=== PATIENT | male | born 1945 | race Caucasian/White ===

== ENCOUNTER 2017-04-23 18:06 | Inpatient (IN) | payer OTHER, MEDICARE ==
[~2017-04-23] VITALS: Ht 182.9 cm; Wt 127.3 kg
--- NOTE | ~2017-04-23 | OR ---
PATIENT'S NAME: CAPO [facility] AGE: 71 Y [address] ROOM: [place] [address] [place] [facility] [place]: 04/23/2017 OR/Procedure Report DISCHARGE DATE: FAMILY PHYSICIAN: REYMUNDO PÉREZ MD ATTENDING PHYSICIAN: SAMY ALONZO SURGEON: Luisito Weiner MD MEDICAL CODING MANAGER: None. DATE OF PROCEDURE: 04/25/2017 IDENTIFICATION: A 71-year-old male. PREOPERATIVE DIAGNOSES: 1. Right 2nd toe gangrene. 2. Gastrocnemius equinus/shortened Achilles tendon. POSTOPERATIVE DIAGNOSES: 1. Right 2nd toe gangrene. 2. Gastrocnemius equinus/shortened Achilles tendon. PROCEDURE: 1. Right gastrocnemius recession procedure. 2. Right 2nd toe amputation at metatarsophalangeal joint. 3. Use of intraoperative fluoroscopy, less than 1 hour. ANESTHESIA: Spinal and peripheral nerve block. FLUIDS: See anesthesia report. ESTIMATED BLOOD LOSS: Minimal. TOURNIQUET: Right proximal thigh 250 mmHg. SPECIMEN: Right 2nd toe. COMPLICATIONS: None. DISPOSITION: Stable in PACU. COUNTS: All counts correct. INDICATIONS: Mr. Vasquez is a 71-year-old gentleman, who underwent the noted procedures above. The risks, benefits, and alternatives pursuing surgical intervention were discussed with the patient in detail. I marked the patient's right lower extremity and confirmed the right surgical site. The patient elected to proceed with surgery. Anesthesia was consulted for their PATIENT'S NAME: CAPO [facility] AGE: 71 Y [address] ROOM: [place] [address] [place] [facility] [place]: 04/23/2017 OR/Procedure Report DISCHARGE DATE: FAMILY PHYSICIAN: REYMUNDO PÉREZ MD ATTENDING PHYSICIAN: SAMY ALONZO perioperative evaluation of the patient. DESCRIPTION OF PROCEDURE: The patient was brought from the holding area to the operating room. Time-out was performed. Ancef antibiotic was administered for perioperative prophylaxis. The right lower extremity was then prepped and draped in a sterile fashion. I turned my attention to the right lower extremity. An Esmarch was used to exsanguinate the limb and the tourniquet was inflated to 250 mmHg. I then turned my attention to medial aspect of the leg. In the beginning, I performed a longitudinal incision with a 15 blade knife through skin and subcutaneous tissue, muscle fascia down the gastrocnemius aponeurosis. I introduced a speculum. I incised the gastrocnemius aponeurosis. I hyper-dorsiflexed the ankle and achieved approximately 1 cm of diastasis of the gastrocnemius aponeurosis and improvement in the patient's dorsiflexion. The wound was then copiously irrigated with a normal sterile saline solution, closed in layers. I then turned my attention to the right 2nd toe. I introduced intraoperative fluoroscopy. I identified the 2nd toe at the metatarsophalangeal joint. Notably, there was purulent drainage coming from the tip of the second toe and appeared to be evidence of wet gangrene. I then began by making a fishmouth incision over the dorsum of the second toe and plantar surface of the second toe. I sharply dissected using a 15 blade knife the second toe at the metatarsophalangeal joint. I confirmed fluoroscopically that I amputated the 2nd toe at the 2nd metatarsophalangeal joint. The toe was sent to the lab for specimen. The wound was then copiously irrigated with normal sterile saline solution. It was closed using a 2-0 nylon suture in interrupted horizontal mattress fashion to approximate the flap. The tourniquet was let down. A sterile dressing was placed in the form of Xeroform, followed by 4x4s and fluffs followed by a sterile Webril and Ivan bandage. The patient was placed in a postop shoe. The patient was transferred from the operating table onto the stretcher and brought to the recovery room in stable condition. There were no intraoperative complications noted. PATIENT'S NAME: LUPE VASQUEZ [facility] AGE: 71 Y [address] ROOM: [address] [address] [place] [facility] [place]: 04/23/2017 OR/Procedure Report DISCHARGE DATE: FAMILY PHYSICIAN: REYMUNDO PÉREZ MD ATTENDING PHYSICIAN: SAMY ALONZO IMPRESSION: The patient is status post the noted procedures above. PLAN: The patient will be heel weightbearing on the right lower extremity. Postoperative antibiotics will be routine. The patient is being given a heparin for DVT prophylaxis. The right 2nd toe will be sent for specimen. The patient will start physical therapy and occupational therapy on postoperative day 1. The hospitalist team to manage the patient's concomitant medical comorbidities. I will continue to follow the patient closely in the postoperative period. MD SHEILA CORCORAN/mitra /[id number] d: 04/25/172000 t: 04/26/17813, OPERATIVE SUMMARY
--- NOTE | ~2017-04-23 | CON ---
PATIENT'S NAME: LUPE VASQUEZ [facility] AGE: 71 Y [address] ROOM: [place] [address] [place] [facility] [place]: 04/23/2017 Consultation DISCHARGE DATE: FAMILY PHYSICIAN: REYMUNDO PÉREZ MD ATTENDING PHYSICIAN: SMAY ALONZO DATE OF CONSULTATION: 04/25/2017 CHIEF COMPLAINT: Right foot pain. HISTORY OF PRESENT ILLNESS: Mr. Vasquez is a pleasant 71-year-old gentleman who has been sent to [facility] for admission from the [place]. The patient has had a storied history of problematic right second toe. He has long-standing diabetes with advanced peripheral neuropathy. Approximately 2 months ago, the patient developed an infection in his second toe. The toenail was removed, and there was purulent drainage. The patient was treated with antibiotics, but does not recall what kind. There was a period where there appeared to be interval improvement in the second toe. Though, when he woke up on the morning of the , he realized that his second toe had become red, swollen, and hot to the touch with purulent drainage noted. Seeing that the patient is a diabetic with advanced peripheral neuropathy, he is unable to feel this coming on. There was concern for osteomyelitis. He has been sent over to [facility] for definitive care. I was consulted to see and evaluate him from an Orthopedic standpoint. Currently, the patient denies any constitutional symptoms such as fever, chills, or night sweats. He also denies any dizziness, chest pain, shortness of breath, blurred vision, nausea, vomiting, or diarrhea. He denies any previous trauma or surgery to the right foot. REVIEW OF SYSTEMS: Otherwise, as mentioned above. All other systems were reviewed and are negative, except as mentioned in the history of present illness. PAST MEDICAL HISTORY: Includes coronary artery disease, type 2 diabetes, hypertension, peripheral neuropathy, ischemic stroke, hyperlipidemia, obstructive sleep apnea, depression, and GERD. ALLERGIES: INCLUDE LISINOPRIL AND IV CONTRAST. MEDICATIONS: Currently include; 1. Asmanex. PATIENT'S NAME: LUPE VASQUEZ [facility] AGE: 71 Y [address] ROOM: [place] [address] [place] [facility] [place]: 04/23/2017 Consultation DISCHARGE DATE: FAMILY PHYSICIAN: REYMUNDO PÉREZ MD ATTENDING PHYSICIAN: SAMY ALONZO 2. Coreg. 3. Cozaar. 4. Florastor. 5. Glucophage. 6. Heparin. 7. Lipitor. 8. Neurontin. 9. Norvasc. 10. NovoLog. 11. Plaquenil. 12. Protonix. 13. Proventil. SOCIAL HISTORY: The patient no longer smokes. He had a previous jrn-ghds-woc-day for many- year cigarette consumption, but quit in the year 1999. He denies any alcohol or illicit drug use. FAMILY HISTORY: Includes cancer in his father, and his father's side of the family. His mother had cardiac issues. PAST SURGICAL HISTORY: Includes CABG, stent placement, lumbar spine surgery, cervical spine surgery, and right shoulder surgery in the past. PHYSICAL EXAMINATION: VITAL SIGNS: Temperature is 97.6, respirations 16, heart rate of 56, and blood pressure of 173/78. HEENT: Normocephalic and atraumatic. Extraocular movements are intact. PERRLA. Moist mucous membranes. Oropharyngeal airway is clear. NECK: Supple. Trachea is in the midline. CARDIOVASCULAR: Regular rate and rhythm. RESPIRATORY: Normal symmetric respirations observed bilaterally. ABDOMEN: Soft, nontender, and nondistended. MUSCULOSKELETAL: Extremities, right lower extremity, focal examination of the patient's right lower extremity revealed that the thigh, calf, and foot are soft. There is +1 edema in the leg. There are trace palpable dorsalis pedal and posterior tibial pulses. Delayed capillary refill noted in the toes. Wet gangrene noted at the tip of the second toe. Surrounding cellulitis noted. Purulent drainage at the tip of the second toe. Dorsiflexion to neutral with the knee extended, which improves approximately 15 degrees when the knee is flexed to 90 degrees. This was a positive Silfverskiold test. Global decreased sensation secondary to peripheral neuropathy. PATIENT'S NAME: LUPE VASQUEZ [facility] AGE: 71 Y [address] ROOM: [address] [address] [place] [facility] [place] DATE: 04/23/2017 Consultation DISCHARGE DATE: FAMILY PHYSICIAN: REYMUNDO PÉREZ MD ATTENDING PHYSICIAN: SAMY ALONZO LABORATORY DATA: Hemoglobin 11.2, hematocrit 33.5, white blood cell count of 3.7, and platelet count of 157. Chem-7; sodium of 141, potassium of 4.3, chloride 106, CO2 28, BUN 14, creatinine 0.9, glucose 191. Blood cultures currently negative. CRP is 1.14. Procalcitonin is 0.29, which is elevated. Glycosylated hemoglobin 9.5. IMAGING: Plain radiographs of the right foot reveal no evidence of fracture or dislocation. Advanced degenerative changes noted at the first metatarsophalangeal joint. No concern for osteomyelitis by this plain film. An MRI of the right foot appears to show evidence of osteomyelitis at the distal phalanx of the second toe. There was surrounding soft tissue swelling in the foot on the whole. IMPRESSION: 1. Right second toe gangrene with confirmed presence of osteomyelitis by MRI with surrounding cellulitis of the forefoot. 2. Gastrocnemius equinus/shortened Achilles tendon. 3. Diabetes mellitus. 4. Advanced peripheral neuropathy. PLAN: I had a long discussion with the patient today at the bedside regarding his right foot. I am recommending a right second toe amputation at the metatarsophalangeal joint and the gastrocnemius recession procedure. I discussed the risks, benefits, and alternatives of pursuing a surgical intervention with the patient in detail. I discussed the risks of anesthesia, infection, bleeding, and/or injury to neurovascular structures. The patient is at higher risk for complication with his current medical comorbidities. My concern is that if this infection were to be left untreated and/or neglected, hematogenous spread could be lethal. They expressed understanding of this. The issue of the right foot has been persistent for many months now. I believe we are beyond conservative care. The patient expressed understanding of this. Informed consent was obtained. We will proceed with surgery this afternoon. I have answered all of the patient's questions to his satisfaction at the bedside. MATMA SAEED MD RCAmbar/dorisl PATIENT'S NAME: LUPE VASQUEZ [facility] AGE: 71 Y [address] ROOM: [place] [address] [place]: [facility] [place] DATE: 04/23/2017 Consultation DISCHARGE DATE: FAMILY PHYSICIAN: REYMUNDO PÉREZ MD ATTENDING PHYSICIAN: SAMY ALONZO /[id number] d: 04/25/17 1543 t: 04/26/17 0812, CONSULTATION REPORT
--- NOTE | ~2017-04-23 | CON ---
PATIENT'S NAME: LUPE SCANLON [facility] AGE: 71 Y [address] ROOM: [address] [address] LOCATION: [facility] [place] ADMIT DATE: 04/23/2017 Consultation DISCHARGE DATE: FAMILY PHYSICIAN: REYMUNDO PÉREZ MD ATTENDING PHYSICIAN: SALVADOR ALONZO DATE OF CONSULTATION: 04/26/2017 REFERRING PHYSICIAN: Salvador Alonzo MD REASON FOR VISIT: Right second toe wound. HISTORY OF PRESENT ILLNESS: This is a 71-year-old male patient who was admitted to [facility] with a right toe wound. He has a significant history of type 2 diabetes mellitus, coronary artery disease, hypertension, obstructive sleep apnea, and depression. He admits to peripheral neuropathy. He notes 2 months ago having an infection to his right second toe. He notes his toenail was removed, and he was placed on p.o. antibiotics. A few days prior to admission, he noticed his right second toe becoming red and swollen with purulent exudate. The patient's MRI was consistent with osteomyelitis, and he underwent a right second toe amputation at the metatarsophalangeal joint by Dr. Weiner yesterday. Surgical dressing intact to site. The patient denies pain to right foot. He currently reports he feels well. He reports a fair oral intake. He denies chest pain. PAST MEDICAL HISTORY: Type 2 diabetes mellitus with peripheral neuropathy, coronary artery disease, SC, essential hypertension, ischemic stroke, hyperlipidemia, obstructive sleep apnea, GERD, and depression. PAST SURGICAL HISTORY: CABG, cardiac stent, lower back surgery, cervical disk herniation surgery, and right shoulder surgery. FAMILY HISTORY: He reports his father from cancer. SOCIAL HISTORY: The patient lives with his in [place]. He quit smoking in 1999. He denies alcohol use. ALLERGIES: IVAN INHIBITORS AND LISINOPRIL. PATIENT'S NAME: SAMI SCANLONY Enma [facility] AGE: 71 Y [address] ROOM: [address] [address] LOCATION: [facility] [place] ADMIT DATE: 04/23/2017 Consultation DISCHARGE DATE: FAMILY PHYSICIAN: REYMUNDO PÉREZ MD ATTENDING PHYSICIAN: SALVADOR ALONZO CURRENT MEDICATIONS: Please refer to the medication administration record. REVIEW OF SYSTEMS: Pertinent positives addressed in the HPI and all the rest are negative. PHYSICAL EXAMINATION: VITAL SIGNS: Temperature 98.0, pulse 61, respirations 16, blood pressure 140/67, and pulse oximetry 93% on room air. Height 6 feet 0 inches and weight 127.3 kg. GENERAL: The patient is alert and oriented x3. In no acute distress. HEENT: Full garber noted. Head is normocephalic and atraumatic. NECK: Supple. NEUROLOGICAL: Grossly nonfocal. ABDOMEN: Flat. EXTREMITIES: +1 pedal pulses at best. Capillary refill intact. No left lower extremity edema. Scattered brown staining noted to lower legs. SKIN: Bulky Ivan wrap dressing intact to right lower extremity. Left heel intact. No ulcers to left foot. The patient declines buttocks examination and reports he has no other skin issues. LABORATORY DATA: White blood cell count 5.3, hemoglobin 11.3, hematocrit 33.8, and platelets 141. Sodium 141, potassium 4.3, chloride 106, bicarbonate 28, BUN 14, creatinine 0.9, and glucose 191. ASSESSMENT AND PLAN: Again, this is a 71-year-old male patient who was admitted to [facility] with a right second toe ulcer. He is status post right second toe amputation by Dr. Weiner. Right second toe amputation secondary to osteomyelitis and diabetes mellitus. Left bulky postsurgical dressing intact. We will defer to Dr. Weiner for further management. We will be happy to assist with dressing changes or see the patient in the [facility] if needed. I would like to thank Dr. Alonzo for this consult. BIMAL WILD APRN FOR MD XOCHILT PEREZ/mitra PATIENT'S NAME: LUPE SCANLON [facility] AGE: 71 Y [address] ROOM: [address] [address] LOCATION: [facility] [place] ADMIT DATE: 04/23/2017 Consultation DISCHARGE DATE: FAMILY PHYSICIAN: REYMUNDO PÉREZ MD ATTENDING PHYSICIAN: SALVADOR ALONZO /[id number] d: 04/26/17 1238 t: 04/30/17 1014, CONSULTATION REPORT
--- NOTE | ~2017-04-23 | HP ---
PATIENT'S NAME: LUPE SCANLON [facility] AGE: 71 Y [address] ROOM: [id number] [place], [place] [address] [place] [facility] [place]: 04/23/2017 History & Physical DISCHARGE DATE: FAMILY PHYSICIAN: REYMUNDO PÉREZ MD ATTENDING PHYSICIAN: SAMY ALONZO DATE OF SERVICE: CHIEF COMPLAINT: Erythema, edema, and purulent drainage coming out from the right second toe. HISTORY OF PRESENT ILLNESS: This is a 71-year-old male who usually gets all of his care in the [place]. The story is that the patient for many years has had black toenail in the right second toe. He also has a longstanding diabetes type 2 with very advanced peripheral neuropathy with decreased sensation below both knees, worse in both feet. About 2 months ago, the patient has been having infection in his right second toe. At that time, the toenail was removed and pus came out. The patient was treated with antibiotics, but the patient could not remember which ones. In March, the patient was also put on Keflex for roughly 3 weeks. After the completion of the antibiotics, the patient states that his right second toe was looking much better. However, this morning, when he woke up, he realized that his right second toe has become red and swollen and hot to touch, but he could not feel any pain because of the peripheral neuropathy. There was some pus coming out again from the second toe in the area where there was supposed to have toe nail. His toenail was already removed in the past. The patient denies any fever or chills and denies any other symptoms. In fact, the patient does not have any symptoms. The patient went to [place] and the patient was referred here for concern about osteomyelitis. Today, at [place], the patient had x-ray of the right foot to evaluate for osteomyelitis and the official report was read as the tuft of the distal phalanx, second toe has become eroded since the comparison examination, but the margins are smooth and there is no periosteal reaction. There is mild soft tissue swelling in this region. Otherwise, no change from the comparison. Here in our emergency room, the patient again had a right foot x-ray performed, official reading is pending. In the emergency room before I was notified, the patient already got 1 dose of IV clindamycin. Initially, the patient was scheduled for MRI of the right foot tonight; however, due to the staff shortage, MRI will be postponed until the morning. I confirmed this with technical marketing consultant already and the patient will be scheduled for MRI in the morning. PATIENT'S NAME: [facility] AGE: 71 Y [address] ROOM: [place] [address] [place] [facility] [place]: 04/23/2017 History & Physical DISCHARGE DATE: FAMILY PHYSICIAN: REYMUNDO PÉREZ MD ATTENDING PHYSICIAN: SAMY ALONZO REVIEW OF SYSTEMS: As mentioned in the history of present illness. All other systems were reviewed and were negative except as mentioned in the history of present illness. PAST MEDICAL HISTORY: 1. Coronary artery disease status post PCI and stent in the past few years ago and also had CABG many years ago. 2. Diabetes type 2. 3. Hypertension. 4. 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 5. Hyperlipidemia. 6. Obstructive sleep apnea, not on CPAP at night due to noncompliance. 7. Depression. 8. Gastroesophageal reflux disease. 9. Most recent transthoracic echo was done in November 2014. At that time, the EF was 50% to 55%. ALLERGIES: LISINOPRIL, WHICH CAUSES A COUGH. IV CONTRAST. THE PATIENT SAYS THAT IT GAVE HIM SHORTNESS OF BREATH. HOME MEDICATIONS: Currently is being reconciled and will be addressed once the list is ready. SOCIAL HISTORY: The patient was a former cigarette smoker about 1 pack per day for few years and he quit in year 1999. He denies any alcohol or any illegal drug use. FAMILY HISTORY: Father had a cancer and from cancer, but he could not remember which cancer. Mother had a heart issue. Details are not clear and also had Alzheimer and at old age from dementia according to the patient. PAST SURGICAL HISTORY: 1. Status post CABG in the past many years ago. 2. Status post drug-eluting stent placed in the heart few years ago. 3. Lower back surgery in the past. 4. Status post cervical disc herniation surgery in 2007. 5. Status post right shoulder surgery in the past. PHYSICAL EXAMINATION: VITAL SIGNS: At the time of my dictation, temperature was 98, blood pressure PATIENT'S NAME: [facility] AGE: 71 Y [address] ROOM: [id number] [place], [place] [address] [place] [facility] [place]: 04/23/2017 History & Physical DISCHARGE DATE: FAMILY PHYSICIAN: REYMUNDO PÉREZ MD ATTENDING PHYSICIAN: CLINTONPABLO was 170/90, heart rate was 82, respirations were 14, saturation was 99% on room air. GENERAL APPEARANCE: Alert and oriented x3, in no acute distress. HEENT: Pupils are equally round and reactive to light. Extraocular muscles intact. Anicteric sclerae. Nasal turbinates are normal bilaterally. Moist oral mucosa. NECK: No JVD. CARDIOVASCULAR: Regular rate and rhythm. No obvious murmurs, rubs, or gallops. Normal S1, S2. RESPIRATORY: Clear to auscultation. No rales and no rhonchi. No crackles and no wheezing. ABDOMEN: Obese, soft, nontender, bowel sounds are present, could not appreciate any mass. No ascites. Soft and nondistended. No abdominal rigidity. EXTREMITIES: No edema in upper or lower extremity. In the right second toe, there is erythema as well as small area of necrotic skin in the area where it is supposed to have a toenail, but his toenail was removed in the past. No active pus upon excretion of the second toe. No pain. Very decreased sensation to touch. Slightly warm to touch. No obvious edema. Dorsalis pedis pulse and the posterior tibialis pulse, palpable, but weak in both feet. Doppler ultrasound was able to find the pulse in both feet, in both dorsalis pedis and also on posterior tibialis. Both feet are not cold to touch. NEUROLOGICAL: Grossly unremarkable except for a right upper visual field loss in the right eye from a previous stroke and also decreased sensation in both lower extremity below both knees, especially in both feet. Otherwise, grossly unremarkable. SKIN: Refer to the extremity section for details. MUSCULOSKELETAL: No muscle pain and no joint pain. Range of motion intact. LABORATORY DATA: Lactic acid 1.9, white blood cells 6.7, hemoglobin 11.7, hematocrit 35.6, MCV 91, platelets 160. Glucose 108, BUN 17, creatinine 1.2. Sodium 139, potassium 3.9, chloride 102, CO2 28, calcium 8.8, total protein 6.9, albumin 3.3, AST 23, ALT 33, alkaline phosphatase 93, total bilirubin 0.5, anion gap 12.9, globulin 3.6, GFR 60, CRP 1.73, procalcitonin less than 0.05. IMAGING STUDY: 1. Right foot x-ray from the outside facility performed on April 23, 2017, already mentioned in the history of present illness. 2. X-ray performed in the emergency room upon arrival, on April 23, 2017, of the right foot, the official reading is pending. EMERGENCY ROOM COURSE: In the emergency room, the patient got 1 liter of normal saline and also one dose of IV clindamycin 900 mg. This was given in the ED before I was notified PATIENT'S NAME: LUPE SCANLON [facility] AGE: 71 Y [address] ROOM: [id number] [place], [place] [address] [place] [facility] [place]: 04/23/2017 History & Physical DISCHARGE DATE: FAMILY PHYSICIAN: REYMUNDO PÉREZ MD ATTENDING PHYSICIAN: SAMY ALONZO for admission. ASSESSMENT AND PLAN: 1. Regarding his right second toe cellulitis and questionable osteomyelitis: I will get MRI of the right foot in the morning to look for osteomyelitis. The patient currently is hemodynamically stable and has no complaints. Blood work did not show any leukocytosis, but does show elevation of CRP. I am going to hold on the antibiotics for now until tomorrow's MRI to see if he has osteomyelitis or not. If he does have, then we will consult orthopedic surgeon for debridement and also for bone biopsy prior to starting any antibiotics. Further plan will depend on clinical course. Blood culture 2 sets already obtained. Please also follow up with the official report of the right foot x-ray in the morning. The patient will be monitored very closely in the medical- surgical unit for any change in the right second toe. I will also consult Wound Care for diabetic foot care and also for the right second toe wound care. We will repeat blood work in the morning including CRP and ESR. Continue IV fluids for maintenance rates right now. 2. Regarding his peripheral vascular disease: The patient does have a pulse that is palpable, but weak in both lower extremity in both dorsalis pedis and also on both posterior tibialis pulses. Doppler was already used and was able to find the pulse in both feet in dorsalis pedis and also on the posterior tibialis pulses in bilateral feet. In the morning, please check again the pulse and can consult Vascular Surgery if necessary for peripheral vascular disease and if the necrosis of the second toe worsens for risk of limb ischemia. Both feet are currently not cold to touch. 3. Regarding his hypertension: We will continue home medications with holding parameters and also we will add IV labetalol p.r.n. and also IV hydralazine p.r.n. for hypertension control if needed. 4. Regarding his diabetes type 2: Continue diabetic diet. We will check hemoglobin A1c. I will put him on the sliding scale aspart a.c. and h.s. aggressive dose. Can titrate as needed. 5. Regarding his obstructive sleep apnea: Continue oxygen nasal cannula at night if necessary for the saturation to keep it above 94%. 6. Regarding his gastroesophageal reflux disease: Continue the home medication, which includes the proton pump inhibitor. 7. Regarding his coronary artery disease, status post stents in the past and also CABG in the past: The patient denies any chest pain. I will continue home medication. No active issue at the moment. 8. Regarding his deep vein thrombosis prophylaxis: The patient will be getting subcu heparin. 9. Regarding his code status: He is a DO NOT RESUSCITATE, but not DO NOT INTUBATE. Total time spent in care on the day of admission 50 minutes including 30 minutes was spent on counseling, including going over the plan of care in PATIENT'S NAME: LUPE SCANLON [facility] AGE: 71 Y [address] ROOM: [place] [address] [place] [facility] [place]: 04/23/2017 History & Physical DISCHARGE DATE: FAMILY PHYSICIAN: REYMUNDO PÉREZ MD ATTENDING PHYSICIAN: SAMY ALONZO detail with the patient, the patient's , and also addressing all the questions and concerns to their satisfaction. The remaining of the time was spent on interview and chart review and also on physical examination. Further plan will depend on clinical course. SAMY ALONZO MD CC/modl /[id number] D: [id number] T: [id number] HISTORY & PHYSICAL
--- NOTE | ~2017-04-23 | DS ---
PATIENT'S NAME: LUPE SCANLON [facility] AGE: 71 Y [address] ROOM: [address] [place], [place] [address] [place] [facility] [place]MIT DATE: 04/23/2017 Discharge Summary DISCHARGE DATE: 04/27/2017 FAMILY PHYSICIAN: Mario Alberto MD ATTENDING PHYSICIAN: Salvador Schumacher CONSULT PHYSICIAN: Dr. Luisito Weiner. DISCHARGE DIAGNOSES: 1. Right second toe gangrene. 2. Peripheral vascular disease. 3. Diabetes mellitus type 2 with hyperglycemia. 4. Essential hypertension. 5. Obstructive sleep apnea. 6. Gastroesophageal reflux disease. 7. Diabetic peripheral neuropathy. PRINCIPLE PROCEDURES: Right second toe amputation and gastrocnemius recession on 04/25/[address] Luisito Weiner. HOSPITAL COURSE: Please refer to admitting history and physical as dictated by Dr. Schumacher. Briefly, the patient was admitted where he was found to have right second toe cellulitis. MRI of the right foot was performed, which did show findings consistent with osteomyelitis of the distal phalanx of the second toe. Dr. Luisito Weiner was consulted. His blood sugars were monitored, and he was given Levemir as well as sliding scale insulin. Dr. Weiner felt as though the patient should proceed to surgery and undergo a right second toe amputation and gastrocnemius recession. This was performed on 04/25/2017. Postoperatively, he was given Ancef. He was made heel weightbearing of the right lower extremity. Wound Care did see the patient and followed throughout his stay. The patient tolerated the procedure well. He was up and ambulatory. He was tolerating a regular diet. He did have some hyperglycemia. It was recommended that he resume his home insulin regimen on discharge. CPAP was used for his chronic hypercapnic respiratory failure. It was recommended that he have ABIs done as an outpatient as per his primary care provider. Vital signs were stable. Laboratory data was stable. He was up and ambulatory. On 04/27/2017, surgical dressing was changed by Orthopedics. It was felt as though he could be discharged to home. Follow up with Orthopedics in 1 week. He should start aspirin 325 mg p.o. twice daily until full weightbearing for DVT prophylaxis. Once he is full weightbearing, he may resume his aspirin 81 mg. It is also recommended that he hold his methotrexate for 1 week postop. On 04/27/2017, it was felt as though the patient was stable to be discharged to home. He should follow up with his primary care provider in 3 to 5 days. PATIENT'S NAME: LUPE SCANLON [facility] AGE: 71 Y [address] ROOM: [address] [place], [place] [address] LOCATION: [facility] [place] ADMIT DATE: 04/23/2017 Discharge Summary DISCHARGE DATE: 04/27/2017 FAMILY PHYSICIAN: Mario Alberto MD ATTENDING PHYSICIAN: Salvador Schumacher LABORATORY DATA: Sodium remained stable 139 to 141, potassium 3.9 to 4.3, calcium 8.2, BUN 10 to 15, creatinine 0.9 to 1.1. GFR remained greater than 60. AST 23, ALT 33, alkaline phosphatase 93. Hemoglobin 10.3 to 11.7, hematocrit 30.9 to 35.2, platelets 143 to 157. UA: Nitrites negative, leukocytes negative, glucose 1000, blood negative. Blood cultures, no growth to date. Final blood cultures are pending. RADIOLOGY REPORTS: MRI of the right foot showed findings consistent with osteomyelitis of the distal phalanx of the second toe. DISCHARGE INSTRUCTIONS: The patient will be discharged to home. Diet, diabetic. Activity, heel weightbearing. Followup appointment with Dr. Weiner in 1 week. Leave dressing in place until seen in office. Follow up with Dr. Alberto at the [facility] in 3 to 5 days. CPAP when asleep. Recommend bilateral ABIs with primary care provider. DISCHARGE MEDICATIONS: 1. Vitamin D3 2000 units p.o. daily. 2. Methotrexate 25 mg subcu every 7 days, hold for one week, then may resume. 3. Lidocaine jelly one topically 4 times daily. 4. Lipitor 80 mg p.o. q.h.s. 5. Coreg 12.5 mg p.o. twice daily. 6. Neurontin 600 mg p.o. t.i.d. 7. Aspirin 325 mg p.o. b.i.d. until full weightbearing. Once full weight bearing, he may resume his aspirin 81 mg p.o. daily. 8. Plaquenil 200 mg p.o. twice daily. 9. Insulin U-500 of 100 units subcu twice daily. 10. Cozaar 100 mg p.o. daily. 11. Protonix 40 mg p.o. daily. 12. ProAir 1 puff 4 times daily. 13. Asmanex 2 puffs inhalation every bedtime. 14. Eylea 2 mg IO every 28 days. 15. Vitamin B12 of 1000 mcg p.o. daily. 16. Sennosides docusate sodium tablets 1 tablet p.o. twice daily p.r.n. constipation. 17. Folic acid 1 mg p.o. daily. 18. Lasix 80 mg p.o. daily. 19. Glucophage XR 1000 mg p.o. daily. 20. Potassium 20 mEq p.o. daily. 21. Tylenol 325 mg 1 or 2 tablets p.o. every 6 hours p.r.n. pain. Thank you for allowing us to participate in the care of this patient as he has been hospitalized at [facility]. [facility]GE: 71 Y [address] ROOM: [place] [address] [place]: [facility] [place] ADMIT DATE: 04/23/2017 Discharge Summary DISCHARGE DATE: 04/27/2017 FAMILY PHYSICIAN: Mario Alberto MD ATTENDING PHYSICIAN: Salvador Schumacher TOMMY STALLINGS APRN FOR CIARAN MAURER MD KRR/modl /[id number] CC: MD Mario Mcclendon MD d: 04/28/17 0422 t: 05/10/17 2359, DISCHARGE SUMMARY
--- NOTE | ~2017-04-23 | ER ---
PATIENT'S NAME: LUPE SCANLON [facility] AGE: 71 Y [address] ROOM: [place] [address] LOC[place]: [facility] [place] ADMIT DATE: 04/23/2017 ER/Outpatient Report DISCHARGE DATE: FAMILY PHYSICIAN: REYMUNDO PÉREZ MD ATTENDING PHYSICIAN: SAYM ALONZO Admission date and time documented on the medical record. I saw the patient at 1820 hours. CHIEF COMPLAINT: Infected right second toe. HISTORY OF PRESENT ILLNESS: The patient is a 71-year-old male who has been having problems with infection in his right second toe over the past 2 months. Over the past 10 days, he has been on oral clindamycin without improvement. He was seen in the [place] and told to come to the emergency department here at [facility] for admission for IV antibiotics. [place] expected that he could have osteomyelitis of this right second toe. The patient does have insulin-dependent diabetes mellitus type 2, with peripheral vascular disease, peripheral neuropathy. Denies any pain in the toe, has been draining from the tip of the toe. The toe is inflamed, swollen with some red streaking up the dorsum of his foot. No chest pain, shortness of breath. No abdominal pain, nausea, vomiting, or diarrhea. No urinary symptoms. No headache, eyes, ears, nose, throat, neck, or spine pain. No lightheadedness, dizziness, syncope, or near syncope. No fall or trauma. No recent colds, coughs, flus. No other extremity problems. No other skin manifestations. Does have a history of insulin-dependent diabetes mellitus with peripheral neuropathy, retinopathy, nephropathy. He does have a history of some dementia. Does have some history of depression, anxiety. He has had a previous cerebrovascular accident. HOME MEDICATIONS: See attached medication list. ALLERGIES: LISINOPRIL. SOCIAL HISTORY: Nonsmoker, nondrinker. SIGNIFICANT PAST MEDICAL HISTORY: Atherosclerotic ischemic heart disease with coronary artery disease, COPD, hypertension, insulin-dependent diabetes mellitus type 2, remote tobacco, alcohol abuse, unstable angina, cerebrovascular accident, obstructive sleep apnea, dyslipidemia, ischemic cardiomyopathy, dementia, depression, anxiety, PATIENT'S NAME: LUPE SCANLON [facility] AGE: 71 Y [address] ROOM: [place] [address] LOCATION: [facility] [place] ADMIT DATE: 04/23/2017 ER/Outpatient Report DISCHARGE DATE: FAMILY PHYSICIAN: REYMUNDO PÉREZ MD ATTENDING PHYSICIAN: SAMY ALONZO gastroesophageal reflux, peripheral diabetic neuropathy, diabetic retinopathy, diabetic nephropathy, rheumatoid arthritis, degenerative joint disease, degenerative osteoarthritis, and exogenous obesity. OPERATIONS: Right shoulder surgery, cervical diskectomy, coronary artery bypass graft, cardiac catheterization with PTCA and stenting. REVIEW OF SYSTEMS: All systems reviewed by me are negative with the exception of those discussed in the history of the present illness. PHYSICAL EXAMINATION: VITAL SIGNS: Temperature 97, tympanic; pulse 63 and regular; respirations 16; blood pressure 158/69; O2 saturation on room air was 96%. HEAD: Normocephalic. EYES: Extraocular muscles are intact. PERRL. EARS, NOSE, THROAT: Clear. Mucous membranes are moist. NECK: Negative. LUNGS: Clear. HEART: Regular. ABDOMEN: Soft, nontender. Good bowel tones. Mildly obese. No organomegaly or abnormal masses palpable. EXTREMITIES: Moves all 4 extremities. No peripheral edema, cyanosis, or deformity. The patient does have an inflamed, swollen right great toe. It kind of has some ulcer areas with drainage on the tip of the toe. There is some red streaking on the dorsum of his foot. NEUROVASCULAR: Intact. The patient does have peripheral vascular disease. SKIN: Clear other than the right great toe that is erythematous, swollen. X-RAYS: Plain x-ray of the right foot showed degenerative changes, but no acute osteomyelitic changes or fracture. We will review x-ray with the radiologist. LABORATORY DATA: Procalcitonin was less than 0.05, lactate was 1.9. CMS was normal except for a slightly elevated glucose of 108, CRP was 1.73. White count was 6700, 67 segs, 21 lymphs, 9 monos, 3 eos. Hemoglobin is 11.7, hematocrit is 35.6, and platelet count is 160,000. EMERGENCY DEPARTMENT COURSE: I did start the patient on IV normal saline fluids. Did give him clindamycin 900 mg IV here in the emergency department. IMPRESSION: PATIENT'S NAME: LUPE SCANLON [facility] AGE: 71 Y [address] ROOM: [address] [address] LOCATION: [facility] [place] ADMIT DATE: 04/23/2017 ER/Outpatient Report DISCHARGE DATE: FAMILY PHYSICIAN: REYMUNDO PÉREZ MD ATTENDING PHYSICIAN: SAMY ALONZO 1. Cellulitis, infected right second toe. Toe is edematous, inflamed with some drainage from the tip of the toe. Need to rule out osteomyelitis. 2. Insulin-dependent diabetes mellitus type 2 with peripheral diabetic neuropathy, diabetic retinopathy, and diabetic nephropathy. 3. Hypertension. 4. Atherosclerotic ischemic heart disease with coronary artery disease with a history of ischemic cardiomyopathy. 5. Remote tobacco and alcohol abuse. 6. History of cerebrovascular accident. 7. Obstructive sleep apnea. 8. Dyslipidemia. 9. Depression and anxiety with some dementia. 10. Gastroesophageal reflux. 11. Degenerative joint disease with degenerative osteoarthritis. 12. Exogenous obesity. PLAN: Discussed the patient with Dr. Alonzo, hospitalist, who will admit the patient to [facility] for further evaluation and treatment. The patient will need an MRI scan of his right second toe in the morning. May need to have Orthopedic consult, may need to have a bone biopsy. He will need IV antibiotics and possible debridement. Discussion ensued with the patient concerning my findings and recommendations, he understands. MD SEBASTIEN MORSE/modl /[id number] d: 04/24/17 0126 t: 04/24/17 1813, OUTPATIENT REPORT
[2017-04-23 18:59] LABS: BASOPHIL % 0.3 %; EOSINOPHIL # 0.2 K/uL (0.0-0.5); EOSINOPHIL % 2.5 %; HEMATOCRIT 35.6 % (37.0-53.0); HEMOGLOBIN 11.7 g/dL (11.0-16.0); IMMATURE GRANULOCYTE % 0.3 %; LYMPHOCYTE # 1.4 K/uL (0.8-4.0); LYMPHOCYTE % 20.8 %; MCH 29.9 pg (27.0-34.0); MCHC 32.9 gm/dL (32.0-36.5); MONOCYTE # 0.6 K/uL (0.0-1.0); MONOCYTE % 8.9 %; MPV 10.1 fl (9.4-12.4); NEUTROPHIL # (ANC) 4.5 K/uL (1.4-9.0); NEUTROPHIL % 67.2 %; NRBC % 0 /100WBC (0-0.00); PLATELET COUNT 160 K/uL (150-450); RBC 3.91 M/uL (3.50-5.50); RDW-CV 13.3 % (11.9-14.6); WBC 6.7 K/uL (4.0-11.0)
[2017-04-23 19:19] LABS: ALBUMIN 3.3 gm/dL (3.5-5.0); ANION GAP 12.9 (10.0-19.0); CALCIUM 8.8 mg/dL (8.5-10.5); CREATININE 1.2 mg/dL (0.6-1.3); POTASSIUM 3.9 mMol/L (3.7-5.1); TOTAL BILIRUBIN 0.5 mg/dL (0.0-1.5); TOTAL PROTEIN 6.9 g/dL (6.0-8.4)
[2017-04-23] MEDS ORDERED: ACCU-CHEK AVIV1 EAC1 (22:31)
[2017-04-23] MEDS ORDERED: EYLEA2 MG/0.05 IO (22:40)
[2017-04-23] MEDS ORDERED: PROAIR RESPICL90 MCG INH (22:41)
[2017-04-23] MEDS ORDERED: LIPITOR80 MG PO (22:42)
[2017-04-23] MEDS ORDERED: ASPIRIN LO-DOSE81 MG PO (22:42)
[2017-04-23] MEDS ORDERED: COREG25 MG PO (22:45)
[2017-04-23] MEDS ORDERED: VITAMIN D-32000 UNI1 PO (22:45)
[2017-04-23] MEDS ORDERED: VITAMIN B-12500 MCG PO (22:45)
[2017-04-23] MEDS ORDERED: FOLIC ACID1 MG PO (22:53)
[2017-04-23] MEDS ORDERED: SENNOSIDES-DOC1 EACH PO (22:53)
[2017-04-23] MEDS ORDERED: NEURONTIN600 MG PO (22:54)
[2017-04-23] MEDS ORDERED: PLAQUENIL200 MG PO (22:54)
[2017-04-23] MEDS ORDERED: LASIX80 MG PO (22:54)
[2017-04-23] MEDS ORDERED: HUMULIN R500 UNIT/1 SUB-Q (22:56)
[2017-04-23] MEDS ORDERED: COZAAR100 MG PO (22:57)
[2017-04-23] MEDS ORDERED: XYLOCAINE 2%20 MG/ML TOP (22:57)
[2017-04-23] MEDS ORDERED: GLUCOPHAGE XR500 M1 PO (22:58)
[2017-04-23] MEDS ORDERED: METHOTREXA25 MG/1 M3 SUB-Q (23:00)
[2017-04-23] MEDS ORDERED: PROTONIX40 MG PO (23:03)
[2017-04-23] MEDS ORDERED: ASMANEX TWIST220 MC1 INH (23:03)
[2017-04-23] MEDS ORDERED: K-TAB ER20 MEQ PO (23:04)
--- NOTE | 2017-04-24 03:47 | NUR ---
PT ARRIVED TO UNIT AT 2119 VIA WHEELCHAIR WITH SPOUSE AND GRANDSON AT SIDE, FROM ED. PT AAOX4 WITH PLEASANT, PLAYFUL DEMEANOR. [facility]FE[facility]. PIV STARTED IN ED WITH NS INFUSING AT 125ML/HR. INITIAL VS REVEALED HTN, BUT OTHER VS STABLE ON RA. PT DENIED PAIN/SOB. HAS A RARE COUGH THAT PT STATES IS FROM COPD AND "HAS HAD IT FOR YEARS." PT REPORTS NUMBNESS/TINGLING TO BLE. DOPPLER USED TO ASSESS PEDAL PULSES. PLACED ON AN ADA DIET PER MD ORDERS. AMBULATES WELL WITH SBA. REFUSED ASSESSMENT TO GENITAL/BUTTOCKS AREA, BUT COOPERATIVE WITH THE REST OF ASSESSMENT. PT ORIENTED TO ROOM/CALL LIGHT SYSTEM, CORRECTLY DEMONSTRATED USE. ABLE TO MAKE NEEDS KNOWN. NO DISTRESS NOTED AT THIS TIME.
--- NOTE | 2017-04-24 03:56 | NUR ---
Significant Event: PT ARRIVED TO UNIT AT 2119 VIA WHEELCHAIR, WITH SPOUSE AND GRANDSON AT SIDE, FROM ED. PT AAOX4 WITH PLEASANT, PLAYFUL DEMEANOR. [facility] RIGHT SECOND TOE INFECTION AND POSSIBLE OSTEOMYELITIS. PIV STARTED IN ED WITH NS INFUSING AT 125ML/HR, TURNED DOWN TO 75ML/HR ON UNIT, RECEIVED IV CLINDAMYCIN IN ED. INITIAL VS REVEALED HTN, BUT OTHER VS STABLE ON RA. NORVASC ADMINISTERED X1 AT 0130. BS AT 0011: 127. PT DENIED PAIN/SOB. HAS A RARE COUGH THAT PT STATES IS FROM COPD AND "HAS HAD IT FOR YEARS." PT REPORTS NUMBNESS/TINGLING TO BLE. DOPPLER USED TO ASSESS PEDAL PULSES. PLACED ON AN ADA DIET PER MD ORDERS WITH ACHS ACCUCHECK, AND AGGRESSIVE SS. AMBULATES WELL WITH SBA. REFUSED ASSESSMENT TO GENITAL/BUTTOCKS AREA, BUT COOPERATIVE WITH THE REST OF ASSESSMENT. PT ORIENTED TO ROOM/CALL LIGHT SYSTEM, CORRECTLY DEMONSTRATED USE. NEEDS A UA STILL. ABLE TO MAKE NEEDS KNOWN. NO DISTRESS NOTED AT THIS TIME. WOC CONSULT PLACED. PT IS DNR STATUS. 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 Follow up: UA COLLECTION; CBC, LACTIC ACID, PROCAL, BMP, ESR, CRP, HGA1C IN AM.
[2017-04-24 07:44] LABS: BASOPHIL % 0.4 %; EOSINOPHIL # 0.2 K/uL (0.0-0.5); EOSINOPHIL % 3.4 %; HEMATOCRIT 35.2 % (37.0-53.0); HEMOGLOBIN 11.7 g/dL (11.0-16.0); IMMATURE GRANULOCYTE % 0.4 %; LYMPHOCYTE # 1.3 K/uL (0.8-4.0); LYMPHOCYTE % 25.4 %; MCH 29.8 pg (27.0-34.0); MCHC 33.2 gm/dL (32.0-36.5); MCV 89.8 fl (83.0-98.0); MONOCYTE # 0.4 K/uL (0.0-1.0); MONOCYTE % 7.7 %; MPV 10.3 fl (9.4-12.4); NEUTROPHIL # (ANC) 3.1 K/uL (1.4-9.0); NEUTROPHIL % 62.7 %; NRBC % 0 /100WBC (0-0.00); PLATELET COUNT 151 K/uL (150-450); RBC 3.92 M/uL (3.50-5.50); RDW-CV 13.2 % (11.9-14.6)
[2017-04-24 07:55] LABS: ANION GAP 13.3 (10.0-19.0); BLOOD UREA NITROGEN 15 mg/dL (6-24); CALCIUM 8.5 mg/dL (8.5-10.5); CHLORIDE 106 mMol/L (96-110); CO2 26 mMol/L (22-32); CREATININE 1.1 mg/dL (0.6-1.3); ESTIMATED GFR (MDRD EQUATION) > 60; POTASSIUM 4.3 mMol/L (3.7-5.1); SODIUM 141 mMol/L (135-145)
[2017-04-24 16:18] LABS: BILIRUBIN URINE NEGATIVE (NEGATIVE); BLOOD URINE NEGATIVE /UL (NEGATIVE); COLOR URINE YELLOW (YELLOW); GLUCOSE URINE 1000 mg/dL (NEGATIVE); KETONE URINE NEGATIVE (NEGATIVE); LEUKOCYTES URINE NEGATIVE /UL (NEGATIVE); NITRITE URINE NEGATIVE (NEGATIVE); PROTEIN URINE NEGATIVE (NEGATIVE); SPEC GRAVITY URINE 1.015 (1.003-1.035); UROBILINOGEN URINE NORMAL (NORMAL)
[2017-04-24 16:26] LABS: TURBIDITY URINE CLEAR (CLEAR)
--- NOTE | 2017-04-24 18:58 | NUR ---
Patient is alert and oriented, bradycardic, on room air. Ad rafy in room. ADA diet, Q6 accuchecks, gave 10 units for both lunch and breakfast, 12 units of novolog for supper with 30 units of levemir. R) second toe is red with a sore on the top. Noticed a very small black spot on the bottom of the ball of R) foot. Neuropathy to bilateral lower extremeties. R) forearm IV is saline locked. Mostly blind in R) eye. MRI today. Consult Dr. Weiner in AM.
[2017-04-25 05:27] LABS: BASOPHIL % 0.8 %; EOSINOPHIL # 0.1 K/uL (0.0-0.5); EOSINOPHIL % 3.8 %; HEMATOCRIT 33.5 % (37.0-53.0); HEMOGLOBIN 11.2 g/dL (11.0-16.0); IMMATURE GRANULOCYTE % 0.3 %; LYMPHOCYTE # 1.2 K/uL (0.8-4.0); LYMPHOCYTE % 31.8 %; MCH 29.9 pg (27.0-34.0); MCHC 33.4 gm/dL (32.0-36.5); MCV 89.3 fl (83.0-98.0); MONOCYTE # 0.3 K/uL (0.0-1.0); MONOCYTE % 8.6 %; NEUTROPHIL % 54.7 %; NRBC % 0 /100WBC (0-0.00); PLATELET COUNT 157 K/uL (150-450); RBC 3.75 M/uL (3.50-5.50); RDW-CV 13.2 % (11.9-14.6); WBC 3.7 K/uL (4.0-11.0)
[2017-04-25 05:46] LABS: ANION GAP 11.3 (10.0-19.0); BLOOD UREA NITROGEN 14 mg/dL (6-24); CALCIUM 8.6 mg/dL (8.5-10.5); CHLORIDE 106 mMol/L (96-110); CO2 28 mMol/L (22-32); CREATININE 0.9 mg/dL (0.6-1.3); ESTIMATED GFR (MDRD EQUATION) > 60; POTASSIUM 4.3 mMol/L (3.7-5.1); SODIUM 141 mMol/L (135-145)
--- NOTE | 2017-04-25 07:20 | NUR ---
Significant Event: A/O X3 AND COOPERATIVE WITH CARES. DENIES PAIN. Q6HRS ACCUCHECKS ON AGGRESSIVE SLIDING SCALE. 216 & 206 NEEDING 6 UNITS EACH TIME. SALINE LOCK TO R) ANTECUBITAL FLUSHES WELL. IS UP AD MARY. 2ND TOE ON R) FOOT CONTINUES TO BE VERY ANGRY RED LOOKING. WAITING MRI RESULTS AND PLAN FROM . Follow up:
--- NOTE | 2017-04-25 17:48 | NUR ---
Patient is alert and oriented, VSS, on room air. Went down to OR for R) 2nd toe amputation. Had a spinal block and has not recovered sensation of movement to R) leg, slight movement to L) foot. Sips of water. Q6 hour accuchecks with aggressive sliding scale insulin. IV to R) inner forearm infusing D5 1/2 NS with 20mEq of KCL at 125ml/hr. Will need hourly vital signs after shift change.
[2017-04-26 04:59] LABS: BASOPHIL % 0.4 %; EOSINOPHIL # 0.1 K/uL (0.0-0.5); EOSINOPHIL % 2.6 %; HEMATOCRIT 33.8 % (37.0-53.0); HEMOGLOBIN 11.3 g/dL (11.0-16.0); IMMATURE GRANULOCYTE % 0.2 %; LYMPHOCYTE % 18.3 %; MCH 30.3 pg (27.0-34.0); MCHC 33.4 gm/dL (32.0-36.5); MCV 90.6 fl (83.0-98.0); MONOCYTE # 0.4 K/uL (0.0-1.0); MONOCYTE % 8.1 %; NEUTROPHIL # (ANC) 3.7 K/uL (1.4-9.0); NEUTROPHIL % 70.4 %; NRBC % 0 /100WBC (0-0.00); PLATELET COUNT 141 K/uL (150-450); RBC 3.73 M/uL (3.50-5.50); RDW-CV 13.1 % (11.9-14.6); WBC 5.3 K/uL (4.0-11.0)
--- NOTE | 2017-04-26 07:27 | NUR ---
Significant Event: A/O X3 AND COOPERATIVE WITH CARES. SPINAL AND BLOCK BOTH HAVE WORN OFF AND PATIENT HAVE FULL SENSATION ON LEGS. CONTINUES TO HAVE NUMBNESS & TINGLING IN BOTH FEET BUT HAS RETURNED TO PRE-SURGERY BASELINE. VSS AND AFEBRILE. PATIENT IS TO PLACE NO PRESSURE ON THE RIGHT BALL OF FOOT OR TOES BUT MAY PUT PRESSURE ON HIS HEEL. DRESSING TO R) FOOT IS C/D/I. ACCUCHECKS Q6HRS. STARTED ON LEVEMIR. ONLY ON SIPS OF H2O UNTIL THIS AM. IV TO R) ANTECUBITAL WITH IV FLUIDS INFUSING WITHOUT DIFFICULTY. VOIDING PER URINAL. SLEPT WELL THROUGH NIGHT. Follow up:
--- NOTE | 2017-04-26 10:20 | NUR ---
Introduced self/role to patient, lives in [place] with his Bianka. [facility] [place] recently installed a ramp and put in a handicap assessable bathroom. He denied any barriers to getting home or at home. He expects to be here a few more days. Added my name to his marker board, will continue to follow.
--- NOTE | 2017-04-26 14:09 | NUR ---
[facility] note 1000 Provided Diabetes Assessment form to patient and encouraged him to complete. Patient reported was taking U 500 insulin at home, but is ordered to have Levemir insulin 15 units BID while here in hospital with Aggressive sliding scale novolog, metformin 1000 mg BID. Current A1C of 9.5 % discussed with patient, rational for proper glycemic control to assist in further reduction in complications related to diabetes, heart, eyes, kidneys and nerves. Patient does [facility] all [facility] [place], [place] and follows up with them regularly. States he just had an appt with them last week for his feet, and then his spouse noticed something wrong with toe next to his great toe on his right foot the day after he was there for that appointment. Stressed importance of proper foot care, patient states his spouse takes care of all of "that stuff" for him. Blood sugar here 150-180 mostly. 1300 When CDE enters room again today, patient states he has not worked on the Assessment form, but will let spouse assist him this afternoon when she arrives, Will check on him on 04/27/17 to further educational needs regarding Diabetes Management.
--- NOTE | 2017-04-26 17:06 | NUR ---
Significant Event:A/O x 3, cooperative with cares. UP with 1 assist and walker, refuses gaitbelt. PIV to R) arm saline locked. VSS. On q 6 hour accuchecks, last was 203 and will get insulin. No pressure to be placed on R) ball/toes of foot. Is very compliant with ambulation. No pain. Dressing up to knee, no drainage. Follow up:Continue plan of care.
--- NOTE | 2017-04-27 04:33 | NUR ---
Significant Event: Pt alert and oriented. Heel weight bearing to RLE. Dressing to right cl/dry/intact. No c/o pain. IV saline locked. Q6 hour accuchecks with aggressive scale. Follow up: Cont to monitor.
[2017-04-27 06:04] LABS: BASOPHIL % 0.4 %; EOSINOPHIL # 0.1 K/uL (0.0-0.5); EOSINOPHIL % 1.4 %; HEMATOCRIT 30.9 % (37.0-53.0); HEMOGLOBIN 10.3 g/dL (11.0-16.0); IMMATURE GRANULOCYTE % 0.4 %; LYMPHOCYTE # 1.4 K/uL (0.8-4.0); LYMPHOCYTE % 26.2 %; MCH 29.9 pg (27.0-34.0); MCHC 33.3 gm/dL (32.0-36.5); MCV 89.6 fl (83.0-98.0); MONOCYTE # 0.5 K/uL (0.0-1.0); MONOCYTE % 9.7 %; MPV 9.7 fl (9.4-12.4); NEUTROPHIL # (ANC) 3.2 K/uL (1.4-9.0); NEUTROPHIL % 61.9 %; NRBC % 0 /100WBC (0-0.00); PLATELET COUNT 143 K/uL (150-450); RBC 3.45 M/uL (3.50-5.50); WBC 5.2 K/uL (4.0-11.0)
[2017-04-27 06:16] LABS: ANION GAP 9.9 (10.0-19.0); BLOOD UREA NITROGEN 10 mg/dL (6-24); CALCIUM 8.2 mg/dL (8.5-10.5); CHLORIDE 105 mMol/L (96-110); CO2 28 mMol/L (22-32); CREATININE 0.9 mg/dL (0.6-1.3); ESTIMATED GFR (MDRD EQUATION) > 60; POTASSIUM 3.9 mMol/L (3.7-5.1); SODIUM 139 mMol/L (135-145)
--- NOTE | 2017-04-27 13:56 | NUR ---
Diabetes consult: PAtient reports he may be released to home today. Patient with Type II diabetes and A1C of 9.5%. Patient reports having started on U-500 two weeks ago under the direction of the V.Megan and having blood sugar "more controlled" running in the 130's. Diabetes survival skills assessment form reviewed with no knowledge deficits noted. Patient denies having any concerns or questions prior to discharge.
[2017-04-27] MEDS ORDERED: TYLENOL325 MG PO (15:38)
--- NOTE | 2017-04-27 16:45 | NUR ---
DISMISSED PER W/C TO CAR ACCOMP.BY SUPERINTENDENT MECHANICAL & FAMILY AFTER RECIEVING DISCHARGE INSTRUCTIONS & PAPERS FROM VIRTUAL NURSE.
--- NOTE | 2017-04-27 16:45 | NUR ---
DISCHARGE: Pt. and were explained discharge instructions, educated on diabetes, treating foot infections, and PVD. Verbalized understanding, no questions or concerns. IV removed by primary nurse, pneumo vacc given. Left with all belongings and prescriptions. Patient was taken to front door by aides and driven home by .
== END 2017-04-27 17:00 | disposition disaster alternative care site (69) | DRG 617 ==
LOC: GMED 18:06 → GMSU 20:38
PROVIDERS: Emergency Medicine; Internal Medicine; Nurse Practitioner Family; Orthopaedic Surgery Adult Reconstructive Orthopaedic Surgery; ADMIT Internal Medicine
DX: E11.69 Type 2 diabetes mellitus with other specified complication (principal); E11.52 Type 2 diabetes mellitus with diabetic peripheral angiopathy with gangrene; J96.12 Chronic respiratory failure with hypercapnia; E11.21 Type 2 diabetes mellitus with diabetic nephropathy; E11.40 Type 2 diabetes mellitus with diabetic neuropathy, unspecified; M86.9 Osteomyelitis, unspecified; L03.115 Cellulitis of right lower limb; I25.10 Atherosclerotic heart disease of native coronary artery without angina pectoris; I10 Essential (primary) hypertension; E78.5 Hyperlipidemia, unspecified; G47.33 Obstructive sleep apnea (adult) (pediatric); M21.6X1 Other acquired deformities of right foot; K21.9 Gastro-esophageal reflux disease without esophagitis; E11.319 Type 2 diabetes mellitus with unspecified diabetic retinopathy without macular edema; Z66 Do not resuscitate; E11.65 Type 2 diabetes mellitus with hyperglycemia; F32.9 Major depressive disorder, single episode, unspecified; Z87.891 Personal history of nicotine dependence; Z79.4 Long term (current) use of insulin; Z95.1 Presence of aortocoronary bypass graft; I25.2 Old myocardial infarction; I95.81 Postprocedural hypotension
CPT/HCPCS: G0009; J0690; J1644; J2250; J3480; J7030

== ENCOUNTER 2017-07-12 13:57 | Emergency (ER) | payer MEDICARE, OTHER ==
--- NOTE | ~2017-07-12 | ER ---
PATIENT'S NAME: CAPO [facility] AGE: 71 Y [address] ROOM: [place] [address] LOCATION: [facility] ADMIT DATE: 07/12/2017 ER/Outpatient Report DISCHARGE DATE: 07/12/2017 FAMILY PHYSICIAN: Mario Alberto MD ATTENDING PHYSICIAN: Gem Burch Time of Arrival: 1357 hours. Time of Evaluation: 1357 hours. IDENTIFICATION: A 71-year-old male. CHIEF COMPLAINT: Chest pain. HISTORY OF PRESENT ILLNESS: The patient is a 71-year-old male, who checked in with a complaint of chest pain. When being put back in the room says that he really is not having chest pain, today he just has not been feeling well. Started on Wednesday, he had nausea, vomiting, diarrhea, and fever through the weekend. He is no longer having any nausea or vomiting. He just complains of some weakness, some shortness of breath, which is not new for him, and then some chest pain on his left side that also is not new and some left-sided abdominal pain. He currently denies any chest pain. ALLERGIES: HE TOLD US NO ALLERGY, ALTHOUGH EXCEPT TO MAYBE CONTRAST DYE, BUT HIS SAID HE IS ALLERGIC TO LISINOPRIL. CURRENT MEDICATIONS: 1. Aflibercept intravitreous every 28 days. 2. Albuterol inhaler 4 times a day. 3. Aspirin 81 mg daily. 4. Atorvastatin 80 mg daily. 5. Carvedilol 25 mg 1/2 tablet b.i.d. 6. Cholecalciferol 2000 units daily. 7. Cyanocobalamin 500 mcg 2 tablets daily. 8. Docusate sennosides 8.6 by mouth twice daily. 9. Folic acid 1 mg daily. 10. Furosemide 80 mg daily. 11. Gabapentin 600 mg t.i.d. 12. Hydroxychloroquine 200 mg b.i.d. 13. Victoza 6 mg/ml 1.2 mg daily. 14. Metformin he said was discontinued. 15. Methotrexate 25 mg subcu once weekly. PATIENT'S NAME: CAPO [facility] AGE: 71 Y [address] ROOM: [place] [address] LOCATION: ED ADMIT DATE: 07/12/2017 ER/Outpatient Report DISCHARGE DATE: 07/12/2017 FAMILY PHYSICIAN: Mario Alberto MD ATTENDING PHYSICIAN: Gem Burch 16. Mometasone 220 mcg 2 puffs daily. 17. Pantoprazole 40 mg daily. 18. Potassium 20 mEq b.i.d. 19. Losartan 100 mg half tablet daily. MEDICAL PROBLEMS: Right second toe gangrene, status post amputation; peripheral vascular disease; diabetes mellitus type 2; hypertension; obstructive sleep apnea; gastroesophageal reflux disease; diabetic peripheral neuropathy; ischemic stroke; hyperlipidemia; obstructive sleep apnea; depression; coronary artery disease, status post PCI and stent as well as remote CABG. PRIOR SURGERIES: CABG, drug-eluting stent, lower back surgery, cervical disk herniation surgery, right shoulder surgery. SOCIAL HISTORY: The patient is . He lives in [place]. He is retired. Tobacco use, quit 20 years ago. Alcohol use, occasional. Drug use, denies. REVIEW OF SYSTEMS: All systems reviewed and negative other than what is noted in the HPI other than just general myalgias. PHYSICAL EXAMINATION: VITAL SIGNS: Height 6 feet, weight 119.2 kg, blood pressure 133/74, pulse 81, respirations 22, temperature 98.1, sats 94%. GENERAL: A 71-year-old male, in no acute distress. HEENT: Unremarkable. LUNGS: Clear to auscultation. HEART: Regular rate and rhythm. ABDOMEN: Soft, nondistended, minimally tender in the left. ABDOMEN: No rebound or guarding. SKIN: Brice, warm, and dry. No lesions or rashes noted. NEURO: No focal deficit. LABORATORY DATA AND X-RAYS: EKG at 2:15 p.m., normal sinus rhythm, 76 beats per minute. RSR prime, no acute findings. Repeat EKG at 1613 hours, no acute findings and no change from previous noted EKGs in February 2016. Amylase 26, lipase 128. TSH 0.988. ProBNP 110. Sodium 135, potassium 4.1, chloride 99, CO2 of 29, BUN 13, creatinine 1.1, blood sugar 260. Liver enzymes normal. Magnesium 1.9. CPK 99, CK-MB 2.3, troponin I less than 0.040. Hemoglobin 13.9, hematocrit 39.7, platelets 195, white count 6.6 with PATIENT'S NAME: LUPE SCANLON [facility] AGE: 71 Y [address] ROOM: [place] [address] LOCATION: ED ADMIT DATE: 07/12/2017 ER/Outpatient Report DISCHARGE DATE: 07/12/2017 FAMILY PHYSICIAN: Mario Alberto MD ATTENDING PHYSICIAN: Gem Burch normal differential. INR 1.0. Repeat enzymes at 1612 hours, CK 90, CK-MB 2.1, troponin I less than 0.010. Chest x-ray portable, no acute process. Pending Radiology over-read. CT scan with no contrast, negative, cholelithiasis with no ductal dilatation and no pain in the left upper abdomen. IMPRESSION: Generalized fatigue and myalgias. Home to rest. Continue current medications. [facility]. Follow up sooner if any problems or concerns. The patient and his and son understand and agree, and all questions have been answered. GEM BURCH MD CAR/modl /[id number] d: 07/13/17206 t: 07/14/172042, OUTPATIENT REPORT
[~2017-07-12 13:57] MED LIST: ACCU-CHEK AVIV1 EAC1; ASMANEX TWIST220 MC1 INH; ASPIRIN LO-DOSE81 MG PO; COREG25 MG PO; COZAAR100 MG PO; EYLEA2 MG/0.05 IO; FOLIC ACID1 MG PO; GLUCOPHAGE XR500 M1 PO; HUMULIN R500 UNIT/1 SUB-Q; K-TAB ER20 MEQ PO; LASIX80 MG PO; LIPITOR80 MG PO; METHOTREXA25 MG/1 M3 SUB-Q; NEURONTIN600 MG PO; PLAQUENIL200 MG PO; PROAIR RESPICL90 MCG INH; PROTONIX40 MG PO; SENNOSIDES-DOC1 EACH PO; TYLENOL325 MG PO; VITAMIN B-12500 MCG PO; VITAMIN D-32000 UNI1 PO; XYLOCAINE 2%20 MG/ML TOP
[2017-07-12 14:30] LABS: BASOPHIL % 0.5 %; EOSINOPHIL # 0.1 K/uL (0.0-0.5); EOSINOPHIL % 1.8 %; HEMOGLOBIN 13.9 g/dL (11.0-16.0); IMMATURE GRANULOCYTE % 0.3 %; LYMPHOCYTE # 1.3 K/uL (0.8-4.0); LYMPHOCYTE % 19.2 %; MCV 86.3 fl (83.0-98.0); MONOCYTE # 0.5 K/uL (0.0-1.0); MONOCYTE % 8.1 %; MPV 9.8 fl (9.4-12.4); NEUTROPHIL # (ANC) 4.6 K/uL (1.4-9.0); NEUTROPHIL % 70.1 %; NRBC % 0 /100WBC (0-0.00); RDW-CV 14.6 % (11.9-14.6); WBC 6.6 K/uL (4.0-11.0)
[2017-07-12 14:32] LABS: HEMATOCRIT 39.7 % (37.0-53.0); MCH 30.2 pg (27.0-34.0); PLATELET COUNT 195 K/uL (150-450)
[2017-07-12 14:39] LABS: PROTIME 10.5 SECONDS (9.8-11.4); PTT 29 SECONDS (25-32)
[2017-07-12 14:50] LABS: ALBUMIN 3.5 gm/dL (3.5-5.0); ALK PHOS 123 IU/L (33-138); ALT 37 IU/L (12-78); ANION GAP 11.1 (10.0-19.0); AST 20 IU/L (10-40); BLOOD UREA NITROGEN 13 mg/dL (6-24); CALCIUM 9.1 mg/dL (8.5-10.5); CHLORIDE 99 mMol/L (96-110); CO2 29 mMol/L (22-32); CPK 99 IU/L (35-332); CREATININE 1.1 mg/dL (0.6-1.3); MAGNESIUM 1.9 mg/dL (1.8-2.6); POTASSIUM 4.1 mMol/L (3.7-5.1); SODIUM 135 mMol/L (135-145); TOTAL PROTEIN 7.8 g/dL (6.0-8.4)
[2017-07-12 14:51] LABS: TOTAL BILIRUBIN 0.8 mg/dL (0.0-1.5)
[2017-07-12 16:34] LABS: CPK 90 IU/L (35-332)
== END 2017-07-12 17:13 | disposition disaster alternative care site (69) ==
LOC: GMED 13:57
PROVIDERS: Family Medicine
DX: R53.83 Other fatigue (principal); M79.1 Myalgia; I10 Essential (primary) hypertension; E11.9 Type 2 diabetes mellitus without complications; K21.9 Gastro-esophageal reflux disease without esophagitis; I25.10 Atherosclerotic heart disease of native coronary artery without angina pectoris; F32.9 Major depressive disorder, single episode, unspecified; E78.5 Hyperlipidemia, unspecified; G47.33 Obstructive sleep apnea (adult) (pediatric); Z87.891 Personal history of nicotine dependence; Z88.8 Allergy status to other drugs, medicaments and biological substances; Z91.041 Radiographic dye allergy status; Z79.82 Long term (current) use of aspirin; Z79.84 Long term (current) use of oral hypoglycemic drugs; Z79.899 Other long term (current) drug therapy; Z95.1 Presence of aortocoronary bypass graft

== ENCOUNTER 2017-07-15 20:25 | Inpatient (IN) | payer MEDICARE, OTHER ==
[~2017-07-15] VITALS: Ht 182.9 cm; Wt 122.3 kg
--- NOTE | ~2017-07-15 | CON ---
PATIENT'S NAME: LUPE SCANLON [facility] AGE: 71 Y [address] ROOM: [place] [address] LOCATION: [facility]PCU ADMIT DATE: 07/16/2017 Consultation DISCHARGE DATE: FAMILY PHYSICIAN: PHYSICIAN, UNKNOWN ATTENDING PHYSICIAN: SAMY ALONZO DATE OF CONSULTATION: 07/16/2017 REFERRING PHYSICIAN: Grabiel Javed MD REASON FOR CONSULTATION: Coronary artery disease, chest pain. HISTORY OF PRESENT ILLNESS: The patient was admitted yesterday. He presented to the emergency room complaining of chest pain, but also abdominal pain, vomiting and diarrhea. This patient has established coronary artery disease. Has history of remote coronary bypass surgery. He was here at the end of 2013, and he underwent two coronary intervention procedures. He needed a stent to the diagonal branch that was not bypassed and also stented distal to right coronary artery, saphenous anastomosis. He then followed with the [employer] system. He did not have any further interventions. 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 He is diabetic, not very good control, also has hypertension and peripheral artery disease with amputation of his right fourth toe. SOCIAL HISTORY: Lives with his in [place], quit smoking cigarettes about 20 years ago. No significant alcohol use. FAMILY HISTORY: His father from cancer, no details known, and his mother had some heart issues. He reports an adverse reaction to the lisinopril. CURRENT MEDICATIONS: Include, 1. Aflibercept 2 mg intraocularly every 28 days as he gets to the [employer] system. 2. Albuterol inhaler four times a day. 3. Aspirin 81 mg daily. 4. Atorvastatin 80 mg daily. 5. Carvedilol 25 mg half a tablet twice a day. 6. Vitamin D3 2000 units daily. PATIENT'S NAME: [facility] AGE: 71 Y [address] ROOM: [place] [address] LOCATION: [facility]PCU ADMIT DATE: 07/16/2017 Consultation DISCHARGE DATE: FAMILY PHYSICIAN: PHYSICIAN, UNKNOWN ATTENDING PHYSICIAN: SAMY ALONZO 7. Vitamin B12 1000 mcg daily. 8. Sennosides docusate twice a day as needed for constipation. 9. Folic acid 1 mg daily. 10. Furosemide 80 mg daily. 11. Gabapentin 600 mg three times a day. 12. Hydroxychloroquine 200 mg twice a day. 13. Insulin per sliding scale. 14. Losartan 100 mg half a tablet daily. 15. Metformin, says it was discontinued. 16. Methotrexate 25 mg subcutaneously weekly. 17. Asmanex Twisthaler two puffs at bedtime. 18. Pantoprazole 40 mg daily. 19. Potassium chloride 20 mEq twice a day. 20. Acetaminophen as needed. 21. Victoza 1.8 mg subcutaneously weekly. 22. Use CPAP at night. SURGICAL HISTORY: In addition to heart procedures include cervical disk surgery in 2008 and right shoulder surgery as well. REVIEW OF SYSTEMS: All the positives are noted in the history of present illness. Because of the limitations with vision, the patient does not drive any more. PHYSICAL EXAMINATION: VITAL SIGNS: He is 6 feet and weighs 122.3 kg, and blood pressure 119/62, pulse 83, and temp is 97.8. GENERAL: He is alert and oriented. SKIN: Warm and dry. HEENT: Head is normocephalic and atraumatic. NECK: Supple. No jugular venous distention. No carotid bruits. LUNGS: Clear. HEART: Regular first and second heart sounds. ABDOMEN: Very obese, nontender. EXTREMITIES: The right femoral pulse appears to be decreased compared to the left, but there are no bruits. Pedal pulses are diminished. DIAGNOSTIC STUDIES: His electrocardiogram shows sinus rhythm previous inferior and anteroseptal heart sounds. Troponin is negative and procalcitonin is negative. Estimated GFR is 62. Amylase and lipase are normal. Complete blood count unremarkable. The patient is overnight on intravenous nitroglycerin and remained pain-free. I reviewed also his previous catheterization film. He did have some stenosis in the apical portion of the left and descending artery after the [place] PATIENT'S NAME: LUPE SCANLON [facility] AGE: 71 Y [address] ROOM: [id number] [place], [place] [address] LOCATION: [facility] ADMIT DATE: 07/16/2017 Consultation DISCHARGE DATE: FAMILY PHYSICIAN: PHYSICIAN, UNKNOWN ATTENDING PHYSICIAN: SAMY ALONZO. This could be one of the reasons for recurrent angina, he could also have progression because of his poorly controlled diabetes. Thank you for allowing [facility] to participate in the care of your patient. We will proceed with a pharmacologic stress test and most likely he will need a repeat catheterization. GRABIEL JAVED MD PE/mitra /[id number] d: 07/16/17 1429 t: 07/16/17 1821, CONSULTATION REPORT
--- NOTE | ~2017-07-15 | HP ---
PATIENT'S NAME: CAPO LUPE [facility] AGE: 71 Y [address] ROOM: [place] [address] LOCATION: GPCU ADMIT DATE: 07/16/2017 History & Physical DISCHARGE DATE: FAMILY PHYSICIAN: PHYSICIAN, UNKNOWN ATTENDING PHYSICIAN: SAMY ALONZO DATE OF SERVICE: CHIEF COMPLAINT: Chest pain. HISTORY OF PRESENT ILLNESS: This is a 71-year-old male who says that since last Wednesday the patient felt this left-sided chest pain, intensity is 3/10 to 5/10 on and off, lasts for a few seconds to few minutes with radiation to the left arm associated with some exertional dyspnea, but not too bad. Because of that, he came here to our emergency room this Wednesday. The patient says that he came here on Wednesday and did a few workup and patient was told that it was fine and the patient was sent home. His chest pain persisted and he also felt nauseous and vomited once on Wednesday and twice today and because of the on and off chest pain sometimes with exertion sometimes at rest, the patient came here again for evaluation. He denies any other symptoms. REVIEW OF SYSTEMS: As mentioned in the history of present illness. All other systems were reviewed and were negative except those mentioned in the history of present illness. PAST MEDICAL HISTORY: 1. Coronary artery disease status post PCI and stent in the past few years ago and also had CABG many years ago. 2. Diabetes type 2. 3. Hypertension. 4. 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 5. Hyperlipidemia. 6. Obstructive sleep apnea, not on home CPAP due to medical noncompliance. 7. Depression. 8. Gastroesophageal reflux disease. 9. Most recent transthoracic echo was done in November 2014, at that time EF was 50% to 55%. ALLERGIES: LISINOPRIL, WHICH CAUSES COUGH. IV CONTRAST, THE PATIENT SAYS THAT IT GIVES SHORTNESS OF BREATH. PATIENT'S NAME: CAPO [facility] AGE: 71 Y [address] ROOM: [place] [address] LOCATION: GPCU ADMIT DATE: 07/16/2017 History & Physical DISCHARGE DATE: FAMILY PHYSICIAN: PHYSICIAN, UNKNOWN ATTENDING PHYSICIAN: SAMY ALONZO HOME MEDICATIONS: Currently is being reconciled. SOCIAL HISTORY: Former cigarette smoker about 1 pack per day for few years and he quit in the year 1999. Denies any alcohol or any illegal drug use. FAMILY HISTORY: Father had a cancer and from cancer, but he could not remember which type. Mother had a heart issue, but details not clear. He could not remember. PAST SURGICAL HISTORY: 1. Status post CABG in the past many years ago. 2. Status post drug-eluting stents placed in the heart many years ago. 3. Lower back surgery in the past. 4. Status post cervical disk herniation surgery in 2007. 5. Status post right shoulder surgery in the past. PHYSICAL EXAMINATION: VITAL SIGNS: At the time of my evaluation, temperature was 97.8, heart rate was 91, respiration was 18, blood pressure was 158/84, saturation was 92% on 1 L nasal cannula. GENERAL APPEARANCE: The patient is alert and oriented x3. Currently, in no acute distress. HEENT: Pupils are equally round and reactive to light. Extraocular muscles intact. Anicteric sclerae. Nasal turbinates are normal bilaterally. Moist oral mucosa. NECK: No JVD. CARDIOVASCULAR: Regular rate and rhythm. Normal S1 and S2. No murmur. No rubs. No gallops. He does have tenderness to palpation in the anterior chest and also on the left side of the chest. RESPIRATORY: Clear to auscultation. No rales. No rhonchi. No wheezing. No crackles. ABDOMEN: Obese, soft. Some tenderness to palpation in the epigastric area. No mass. No abdominal rigidity. Bowel sounds present. EXTREMITIES: No edema in upper or lower extremity. Status post amputation of the right second toe. NEUROLOGIC: Grossly nonfocal. LABORATORY DATA: Lactic acid 2.2. CPK 177. Troponin less than 0.04. White blood cells 6.3, hemoglobin 14.1, hematocrit 41.5, platelet 183. Glucose 197. BUN 12, creatinine 1.2. Sodium 139, potassium 3.9, chloride 101, CO2 of 32, calcium PATIENT'S NAME: LUPE SCANLON [facility] AGE: 71 Y [address] ROOM: [place] [address] [facility] ADMIT DATE: 07/16/2017 History & Physical DISCHARGE DATE: FAMILY PHYSICIAN: PHYSICIAN, UNKNOWN ATTENDING PHYSICIAN: SAMY ALONZO 8.9, total protein 7.8, albumin 3.6, AST 35, ALT 45, alkaline phosphatase 132, total bilirubin 0.7, magnesium 1.8, anion gap 9.9. ESR 33. INR 1.02. Urinalysis, not yet collected. GFR 62. Amylase 34, lipase 122. CK-MB 2.0. Procalcitonin less than 0.05. CRP 0.62. IMAGING STUDIES: EKG on admission on July 15, 2017 at 8:39 p.m. The color one EKG, I do appreciate a complete right bundle-branch block without obvious ST elevation or depression. When compared to the prior EKG, this right bundle-branch block was already present. Chest x-ray on admission, the official report is pending. ASSESSMENT AND PLAN: 1. Regarding his chest pain: The patient's chest pain is reproducible on touch. This could mean this could be costochondritis. However, the patient's chest pain also happens during rest and sometime with exertion, is on and off, but he does have a cardiac risk factor from prior coronary artery disease with a stent and also with bypass surgery several years ago. For this reason, I explained to the patient about treating as an acute coronary syndrome or protocol from the possible unstable angina. After going over the risks and benefit of IV heparin drip, the patient would like to wait due to the fear of bleeding as a complication. Currently, his chest pain is barely 2/10 to 3/10 and vital signs have always been stable. I will treat him with IV nitroglycerin drip for the chest pain relief. Continue aspirin full dose now and then daily baby dose. Continue all the home medication including a beta daniela and also a statin. We will cycle cardiac enzymes every 6 hours, get an EKG one more time right now, and also consult Cardiology in the morning. We will also get an echo in the morning. Further plan will depend on clinical course. Keep the magnesium more than 2, potassium more than 4. He could also be having gastroesophageal reflux disease pain in the epigastric area. For that reason, I will be giving IV Protonix. 2. Regarding his diabetes type 2: We will check A1c. We will cover him with subcu regular insulin low-dose q.4 hours. In addition, continue home long-acting insulin, but I will cut down by half and titrate as needed. Currently, the home medication is being reconciled, but the patient says that he does use long-acting insulin twice a day. 3. Regarding his hypertension: Continue the home medication and the beta- daniela with holding parameter. 4. Regarding his gastroesophageal reflux disease: As mentioned before, we will continue with IV Protonix. The patient is n.p.o. While n.p.o., we will do IV fluids for hydration. PATIENT'S NAME: LUPE SCANLON [facility] AGE: 71 Y [address] ROOM: [place] [address] [facility] ADMIT DATE: 07/16/2017 History & Physical DISCHARGE DATE: FAMILY PHYSICIAN: PHYSICIAN, UNKNOWN ATTENDING PHYSICIAN: SAMY ALONZO 5. Regarding his obstructive sleep apnea: The patient is noncompliant with the CPAP. We will continue with oxygen nasal cannula titrate to keep the saturation more than 90%. 6. Deep vein thrombosis prophylaxis: He will be getting Lovenox subcu. He is a full code. Time spent in care on the day of admission 50 minutes, where 15 minutes was spent on chart review and the rest of the time was spent on physical examination: Getting the history, and also going over the plan of care with the patient in detail and addressing all his questions and concerns to his satisfaction. This is the part of the counseling where I went over the plan of care in detail and explaining about the benefit and risks of heparin to the patient. Further plan will depend on clinical course. SAMY ALONZO MD CC/modl /[id number] D: T: [id number] HISTORY & PHYSICAL
--- NOTE | ~2017-07-15 | ECHO ---
Transthoracic Echocardiography Report (TTE) Demographics Patient Name LUPE SCANLON Date of Study 07/16/2017 Patient Number [id number] Visit Number [id number] Date of 1945 Room Number G6328 Accession Number [id number] Gender Male Age 71 year(s) Referring Winsome Olmstead MD Sausage Mixer Harvey Cody RVT, Physician RDCS Physician Interpreting Vita Paredes Glass Belt Sander Physician A Supervising Ordering Physician Winsome Olmstead MD, MD/MLP Nurse Stress Casino Accountant Conclusions Contractility Score Summary Normal Left Ventricular contractility was noted. Summary Technically difficult exam. The estimated left ventricular ejection fraction is 65-70%. Severe concentric left ventricular hypertrophy. Diastolic assessment reveals Grade I diastolic dysfunction. Mildly reduced right ventricular function. with mild to moderate dilatation The left atrium is moderately dilated. The right atrium is severely dilated. No significant valvular abnormalities. The aortic root appears mildly dilated. The maximum diameter measures 3.3 cm. The ascending aorta appears mildly dilated. The maximum diameter measures 4.0 cm. Procedure Type of Study TTE procedure:2D Echocardiogram. Procedure Date Date: 07/16/2017 Start: 07:29 AM Study Location: Inpatient Portable Technical Quality: Fair due to body habitus. Indications:Chest pain. Appropriate Use Criteria: 8 Patient Status: Routine Rhythm: NSR HR: 76 bpm BP: 101/57 mmHg Allergies - Other:(lisinopril and liza inhibitors). M-Mode/2D Measurements LV Diastolic Dimension: 4.13 cm LV Systolic Dimension: 2.52 cm LV Septum Diastolic: 1.7 cm LV PW Diastolic: 1.79 cm AO Root Dimension: 3.3 cm Cardiac Output: 6.36 l/min AV Cusp Separation: 1.5 cm RV Diastolic Dimension: 3.65 cm LA volume: 82 ml LVOT: 2.4 cm RV Base: 4.05 cm LVOT VTI: 18.5 cm RV Mid: 3.86 cm LV Stroke volume: 83.65 ml TAPSE: 1.52 cm TDI-S': 8.22 cm/s Doppler Measurements AV Peak Velocity: 1.09 m/s MV Peak E-Wave: 0.55 m/s AV Peak Gradient: 4.75 mmHg MV Peak A-Wave: 1.02 m/s AV Mean Gradient: 3 mmHg MV E/A Ratio: 0.54 LVOT Peak Velocity: 1.02 m/s MV P1/2t: 77 msec PV Peak Velocity: 1.2 m/s E' Septal Velocity: 0.05 m/s PV Peak Gradient: 5.76 mmHg E' Lateral Velocity: 0.07 m/s A' Septal Velocity: 0.13 m/s A' Lateral Velocity: 0.12 m/s Findings Left Ventricle Severe concentric left ventricular hypertrophy. Diastolic assessment reveals Grade I diastolic dysfunction. Right Ventricle Mildly reduced right ventricular function. Left Atrium The left atrium is moderately dilated. There is no evidence of patent foramen ovale or atrial septal defect by color Doppler. Right Atrium The right atrium is severely dilated. Mitral Valve Mild mitral annular calcification. Aortic Valve The aortic valve is mildly sclerotic. Tricuspid Valve Normal tricuspid valve structure and function. Pulmonic Valve Pulmonic valve is not well seen. Pericardial Effusion No evidence of pericardial effusion. Miscellaneous The aortic root appears mildly dilated. The maximum diameter measures 3.3 cm. The ascending aorta appears mildly dilated. The maximum diameter measures 4.0 cm. Pleural Effusion No evidence of pleural effusion. Contractility Score LV regional wall motion:(0-Non visualized 1-Normal 2-Hypokinesis 3-Akinesis 4-Dyskinesis 5-Aneurysm) Signature dtt: Carisa Gorman dtd: 07/16/17 0729 Physician Self Edit
--- NOTE | ~2017-07-15 | DS ---
PATIENT'S NAME: LUPE VASQUEZ [facility] AGE: 71 Y [address] ROOM: [place] [address] LOCATION: GPCU ADMIT DATE: 07/16/2017 Discharge Summary DISCHARGE DATE: 07/17/2017 FAMILY PHYSICIAN: Physician, Unknown ATTENDING PHYSICIAN: Salvador Schumacher PRINCIPAL DISCHARGE DIAGNOSES: Chronic angina plus musculoskeletal chest pain. SECONDARY DIAGNOSES: 1. Coronary artery disease, status post coronary artery bypass graft and more remotely; status post stenting to 2 vessels in 2013. 2. Cerebrovascular disease, status post transient ischemic attack and cerebral infarction. 3. Right eye blindness, secondary to stroke. 4. Diabetes mellitus, poorly-controlled with hemoglobin A1c of 9.5 on 04/24/2017. 5. Hypertension. 6. Peripheral vascular disease, status post amputation of the right second toe. 7. Morbid obesity. 8. Peripheral neuropathy. 9. Obstructive sleep apnea, semi-compliant with CPAP. CONSULTATIONS: Cardiology, 07/16/2017, Dr. Gorman, [facility]. PROCEDURES: 1. Lexiscan imaging mildly abnormal with a mildly reversible defect in the [id number] inferolateral lateral wall. Signs of dorene-infarct ischemia and fixed defect in the inferior wall consistent with infarct. Overall, left ventricle systolic function normal with hypokinesis of the inferior and inferolateral wall. His calculated left ventricular EF 64%. The date of the Lexiscan was 07/16/2017. 2. Cardiac catheterization, 07/17/2017, results of this are pending at the time of my dictation. There is no intervention indicated. BRIEF HISTORY: Mr. Vasquez is a 71-year-old male who presented to the hospital after having left-sided chest pain intermittently of 3/10 to 5/10 for several days. There was some radiation to the left arm with mild exertional dyspnea. He was seen in the emergency room on the and was discharged home. His pain persisted. He was nauseated, had vomiting, and this occurred intermittently throughout the week and so he returned. On my exam, the patient has some musculoskeletal tenderness along the left- PATIENT'S NAME: LUPE VASQUEZ [facility] AGE: 71 Y [address] ROOM: [place] [address] LOCATION: GPCU ADMIT DATE: 07/16/2017 Discharge Summary DISCHARGE DATE: 07/17/2017 FAMILY PHYSICIAN: Physician, Unknown ATTENDING PHYSICIAN: Salvador Schumacher side of the sternum and then laterally in the line inferior to the nipple line and he continues to have persistent 2/10 to 3/10 pain with worsening on palpation. The patient is feeling well enough to go home, Dr. Gorman has ordered IV hydration with 900 mL of normal saline postcath. Since he is diabetic, I have instructed him he should not take metformin until next week after he sees his PCP on the . He and his are in agreement with plan for discharge to home. INSTRUCTIONS AT DISCHARGE: 1. Diet: Cardiac low fat and [employer]. 2. Activity: As tolerated. 3. Follow up with Dr. Alberto at the [facility] in [place], July 20, 2017. MEDICATIONS: 1. Aspirin 81 mg p.o. daily. 2. Lipitor 80 mg p.o. q.h.s. 3. Carvedilol 12.5 mg p.o. b.i.d. 4. Neurontin 600 mg p.o. t.i.d. 5. Plaquenil 200 mg p.o. b.i.d. 6. Humulin R 15 units b.i.d. 7. Lidocaine topically 4 times a day. 8. Cozaar 100 mg half-a-tab daily. 9. Protonix 40 mg daily. 10. ProAir p.r.n. 11. Asmanex 2 puffs at h.s. 12. Eylea 2 mg every 28 days. 13. Vitamin D 2000 units a day. 14. Vitamin B12 1000 mcg a day. 15. Senna as needed. 16. Folic acid once daily. 17. Lasix 80 mg a day. 18. Metformin is being held as above. 19. Methotrexate subcu every 7 days. 20. Potassium 20 mEq b.i.d. 21. Tylenol p.r.n. 22. Victoza 1.8 mg subcu every 7 days. 23. CPAP. CONDITION ON DISCHARGE: Good. PATIENT'S NAME: LUPE VASQUEZ [facility] AGE: 71 Y [address] ROOM: [place] [address] [facility] AD[facility] DATE: 07/16/2017 Discharge Summary DISCHARGE DATE: 07/17/2017 FAMILY PHYSICIAN: , Xiomara ATTENDING PHYSICIAN: Salvador Schumacher MD LM/mitra /[id number] CC: Mario Alberto MD d: 07/18/17 0035 t: 07/19/17 1830, DISCHARGE SUMMARY
--- NOTE | ~2017-07-15 | ESTC ---
Cardiac Perfusion Imaging Demographics Patient Name CAPO Norwood Gender Male Patient Number [id number] Race Visit Number [id number] [place] [id number] Room Number G6328 Accession Number [id number] Height 72 inches Date of 1945 Weight 269 pounds Ayesha HERNANDES Interpreting CHERELLE Russell Date of study 07/16/2017 Physician Bel Miranda MD Supervising MD/MLP Vita Paredes NM Technologist Amador Hodge MD Ordering Physician Stress rv service technician Stress ECG Reading Vita Paredes Nurse Maycol Puentes Physician Ayesha HERNANDES RN Nela Savage RN The procedure was explained in detail to the patient. Risks, complications and alternative treatments were reviewed. Written consent was obtained. Medications Reviewed with Patient prior to Procedure. Procedure Procedure Type: Nuclear Stress Test:Pharmacological, Lexiscan, Cardiolite Stress Test Procedure Start time: 07/16/2017 11:00 Indications: Chest pain and Shortness of breath. Risk Factors The patient risk factors include:prior PCI;prior CABG;obesity, cerebrovascular disease, former tobacco use, treated hypercholesterolemia, treated hypertension, insulin treated diabetes mellitus, dyslipidemia, prior heart failure and prior [place] . Conclusions Impression ECG portion of the lexiscan stress test is clinically negative for ischemia by diagnostic criteria. Myocardial perfusion imaging is moderately abnormal. The images reveal a mildly reversible defect in the basal to mid inferolateral wall s/of dorene-infarct ischemia and fixed defect in the inferior wall consistent with infarct . Overall left ventricular systolic function was normal. Hypokinesis of the inferior and inferolateral wall noted. Calculated LVEF is 64% and TID ratio is 1.12. Stress Protocols Resting ECG SR IWMI ASMI Pre-stress physical exam: Patient assessed by Dr Gorman prior to testing. Stress Protocol:Pharmacologic Peak HR:96 bpm HR/BP product:[id number] Peak BP:166/77 mmHg Predicted HR: 151 bpm % of predicted HR: 64 ECG Findings Indeterminate ECG due to baseline abnormalities. Arrhythmias No rhythm abnormality. Symptoms No symptoms with Lexiscan infusion. Imaging Results Summed scores - Summed stress score: 13 - Summed rest score: 14 - Summed difference score: -1 Stress ejection Ejection fraction:63 % EDV :106 ml ESV :39 ml Stroke volume :67 ml LV mass :139 gr Imaging Protocols Rest Stress Isotope:Tc99m Sestamibi IV Isotope: Tc99m Sestamibi IV Isotope dose:15.1 mCi Isotope dose:46.4 mCi Date:07/16/2017 09:36 Date:07/16/2017 11:08 Technique: SPECT Technique: Gated Supine SPECT Supine IV remains in place after procedure. Scan Time:45-60 minutes post Scan Time:45-60 minutes post injection injection Procedure Medications - Regadenoson (Lexiscan) 0.4 mg IV over 10-15 sec. I.V. 0.4 mg. Medications administered per verbal order and read back to physician prior to administration. Medical History Admission Data Admission date: 07/16/2017 Admission Time: 00:29 Hospital Status: Inpatient. Signatures dtt: DANAE ROSALES dtd: 07/16/17 1100 Physician Self Edit
--- NOTE | ~2017-07-15 | CATH ---
Cardiac Diagnostic Report Demographics Patient Name CAPO Norwood Gender Male Date of 1945 Age 71 year(s) Patient Number [id number] Date of Study 07/17/2017 Visit Number [id number] Room Number G63[address] [place] [id number] Ht 182.88 cm Wt 122.02 kg Referring Winsome Olmstead MD Primary Physician Physician Performing Efstratiou Secondary Physician Physician Reggie Hodge MD Diagnostic Efstratiou Assisting Physician Physician Reggie Hodge MD Interventional Physician Dramatic Art Teacher Physician Findings and Conclusions Diagnostic Findings and Conclusion No target for revascularization. Diagnostic Recommendations Continue medical therapy. Procedure Description The patient was brought to the diagnostic cardiac catheterization-EP laboratory in the fasting, non-sedated state. Informed consent was obtained in the written and verbal form after the risks and benefits were explained. The patient had no further questions and agreed to proceed. The planned puncture-incision site(s) were shaved and prepped with ChloraPrep and draped in the usual sterile manner. Conscious sedation, supplemental oxygen, and pain control medications were delivered by a registered nurse under physician guidance. Surface ECG rhythm, blood pressure measurement, and pulse oximetry were monitored throughout the procedure. Arterial access. The access site was infiltrated with lidocaine. The vessel was entered with the Seldinger technique. A sheath was advanced into the vessel and used for catheter placement. Selective left coronary angiography. A catheter was advanced into the left coronary vessel ostium under Fluoroscopic guidance. Contrast was injected by hand. Images were obtained in multiple projections. Selective right coronary angiography. A catheter was advanced into the right coronary vessel ostium under fluoroscopic guidance. Contrast was injected by hand. Images were obtained in multiple projections. Selective HARRIS graft angiography. A catheter was advanced into the left internal mammary graft ostium under fluoroscopic guidance. Contrast was injected by hand. Images were obtained in multiple projections. Selective SVG angiography. A catheter was advanced into the graft proximal anastomosis under fluoroscopic guidance. Unable to selectively cannulate. Arterial artery hemostasis. Hemostasis was achieved. The patient was transferred to a regular nursing floor via cart accompanied by a nurse. The patient left the laboratory in stable condition. Diagnostic Cath Status: Urgent Procedure Procedure Type Diagnostic procedure:Angiography:, Coronary Angios w/Grafts Indications: Abnormal Stress Test. The procedure was explained in detail to the patient. Risks, complications and alternative treatments were reviewed. Written consent was obtained. Medications Reviewed with Patient prior to Procedure. Angiographic Findings Dominance: Right Cardiac Arteries and Lesion Findings LMCA: Normal (0% Stenosis).Patent. LAD: Single stenosis.Diag: Patent ostial stent. Lesion on Mid LAD: Mid subsection.95% stenosis . LCx: Normal (0% Stenosis). There is a previous stent on 1st RPL Proximal subsection. Cardiac Grafts - There is a HARRIS graft that originates at the HARRIS and attaches to the Mid LAD (Patent.). - There is a Vein graft that originates at the Aorta Right and attaches to the Mid RCA (Patent, but unable to selectively cannulate. ). Coronary Tree Procedure Data Procedure Date Date: 07/17/2017Start: 09:21 AMEnd: 10:59 AM Entry Locations - Antegrade Percutaneous access was performed through the Right Femoral artery (Primary location). A 6 Fr sheath was inserted. Hemostasis was successfully obtained using Angio-Seal STS PLUS ([place]). Closure Comments: Deployed by Dr. Gorman.. Procedure Medications Order and Administration + + + + + !Time !Medication !Dosage !Route ! + + + + + !07/17/2017 09:20 AM !Versed !1 mg !I.V. ! + + + + + !07/17/2017 09:20 AM !Fentanyl !25 mcg !I.V. ! + + + + + !07/17/2017 09:27 AM !Oxygen !4 l/min !NC ! + + + + + !07/17/2017 09:53 AM !Heparin (ACC_3) !2000 units !I.V. bolus ! + + + + + Devices Used - A6 Fr. BS JL 4 Diag. Catheterwas used for:Left coronary angiography. - A6 Fr. BS JR 4 Diag. Catheterwas used for:Left coronary angiography.Unable to cannulate the vessel. - A6 Fr. MPA2 Diag. Catheterwas used for:Right coronary angiography.Unable to cannulate the vessel. - A6 Fr. JJ 3DRC Diag. Catheterwas used for:Right coronary angiography. - A6 Fr. BS IMT Diag. Catheterwas used for:HARRIS. - A6 Fr. JJ 3DRC Diag. Catheterwas used for:HARRIS.Unable to cannulate the vessel. - A5 Fr. TrailBlazer .035 x 135. - A6 Fr. BS IMT Diag. Catheterwas used for:HARRIS. - A6 Fr. BS AL1 Diag. Catheterwas used for:SVG.Unable to cannulate the vessel. - A6 Fr. BS AR1 Diag. Catheterwas used for:SVG. - A6 Fr. MPB2 Catheterwas used for:SVG.Unable to cannulate the vessel. - A6 Fr. BS AR Mod Diag. Catheterwas used for:SVG. - A6 Fr. BS RCB Diag. Catheterwas used for:SVG. Contrast Material - Isovue [id number] ml Fluoroscopy Time: Diagnostic: 40:06 minutes. Total: 40:06 minutes. Fluoroscopy Dose: Diagnostic: 25.29 mGy. Total: 25.29 mGy. Estimated Blood Loss: 15 ml. Medical History Performed Procedures and Imaging Results - Stress testing with SPECT MPIwas performed. Results were: Positive. Risk/Extent of ischemia was: Low risk. Allergies - Other:(lisinopril and camila inhibitors). - Other:(CAMILA inhibitors). Risk Factors The patient risk factors include:prior PCI;prior CABG;obesity, cerebrovascular disease, treated hypercholesterolemia, treated hypertension, insulin-treated diabetes mellitus, dyslipidemia, former tobacco use, prior heart failure and prior [place] . Admission Data Admission Date: 07/16/2017 Admission Time: 12:29 AM Admit Source: Emergency department Insurance Payors: Medicare. Admission Medications + +------+------+ + + + + !Medication !Dosage!Times !Last !Last !Administered !Comments ! ! ! !Per !Delivery !Delivery ! ! ! ! ! !Day !Date !Time ! ! ! + +------+------+ + + + + !Aspirin ! ! ! ! ! ! ! !(any) ! ! ! ! ! ! ! + +------+------+ + + + + !Beta ! ! ! ! ! ! ! !Teto ! ! ! ! ! ! ! !(any) ! ! ! ! ! ! ! + +------+------+ + + + + !Statin ! ! ! ! ! ! ! !(any) ! ! ! ! ! ! ! + +------+------+ + + + + !ARB (any) ! ! ! ! ! ! ! + +------+------+ + + + + Snapshots Hemodynamics Condition: Rest O2 Consumption: Estimated: 274.82Heart Rate: 64 bpm Pressures (mmHg) +-----+ + !Site !Pressure ! +-----+ + !AO !124/56 (84) ! +-----+ + Shunts Oxygen Values O2 Capacity 191.76 O2 Consumption 274.82 Discharge Data Discharge Date: 07/17/2017 Hospital Status: Inpatient Signatures dtt: Carisa Gorman dtd: 07/17/17 0921 Physician Self Edit
--- NOTE | ~2017-07-15 | ER ---
PATIENT'S NAME: CAPO LUPE L [facility] AGE: 71 Y [address] ROOM: [place] [address] LOCATION: GPCU ADMIT DATE: 07/16/2017 ER/Outpatient Report DISCHARGE DATE: FAMILY PHYSICIAN: PHYSICIAN, UNKNOWN ATTENDING PHYSICIAN: SAMY ALONZO Time of Arrival: 2024. Time Seen: 2054. ID: 71-year-old male. CHIEF COMPLAINT: Chest pain and abdominal pain. HISTORY OF PRESENT ILLNESS: The patient is a 71-year-old male from [place], who was also seen here on Wednesday for the same complaints. He just has not been feeling well. He has had some left-sided chest pain and arm pain, shortness of breath, diaphoresis, weakness, and nausea. He has also had some left-sided abdominal pain. He had an evaluation to include two sets of cardiac enzymes and EKG as well as a noncontrasted abdomen CT on Wednesday and was discharged home. He continues to not feel well. His said he has had some fevers up to 100 and 101 at home. PAST MEDICAL HISTORY: ALLERGIES: TO IV CONTRAST AND LISINOPRIL. CURRENT MEDICATIONS: 1. Aflibercept 2 mg/0.05 mL ophthalmic injection inject 2 mg, 0.05 mL intravitreous every 28 days, [facility]. 2. Albuterol inhaler four times a day. 3. Aspirin 81 mg daily. 4. Atorvastatin 80 mg daily. 5. Carvedilol 25 mg 1/2 tablet b.i.d. 6. Cholecalciferol 2000 units daily. 7. Cyanocobalamin 500 mcg two tablets daily. 8. Docusate sennosides 8.6 mg b.i.d. 9. Folic acid 1 mg daily. 10. Furosemide 80 mg daily. 11. Gabapentin 600 mg t.i.d. 12. Hydroxychloroquine 200 mg b.i.d. 13. Victoza 6 mg/mL 1.2 mg daily. PATIENT'S NAME: LUPE SCANLON [facility] AGE: 71 Y [address] ROOM: [place] [address] LOCATION: GPCU ADMIT DATE: 07/16/2017 ER/Outpatient Report DISCHARGE DATE: FAMILY PHYSICIAN: PHYSICIAN, UNKNOWN ATTENDING PHYSICIAN: SAMY ALONZO 14. Metformin, he stated was discontinued. 15. Methotrexate 25 mg subcu once weekly. 16. Mometasone 220 mcg two puffs daily. 17. Pantoprazole 40 mg daily. 18. KCl 20 mEq b.i.d. 19. Losartan 100 mg 1/2 tablet daily. MEDICAL PROBLEMS: Right second toe gangrene status post amputation, peripheral vascular disease, diabetes mellitus type 2, hypertension, obstructive sleep apnea; on CPAP, gastroesophageal reflux disease, diabetic peripheral neuropathy, ischemic stroke, hyperlipidemia, obstructive sleep apnea, depression, coronary artery disease status post PCI and stent as well as a remote CABG. PRIOR SURGERIES: CABG, drug-eluting stent, lower back surgery, cervical disk herniation surgery, and right shoulder surgery. SOCIAL HISTORY: The patient is . Lives in [place]. He is retired. He quit smoking 20 years ago. Alcohol use, occasional. Drug use, denies. REVIEW OF SYSTEMS: All systems reviewed and negative other than what is noted in the HPI. The patient has had nausea and vomiting. No diarrhea. PHYSICAL EXAMINATION: VITAL SIGNS: Height 6 feet and 0 inches. Weight 121.8 kg, pulse 86, respirations 16, blood pressure 162/82, temperature 98.4, and saturations 94%. GENERAL: A 71-year-old male, in no acute distress. HEENT: Unremarkable. LUNGS: Clear to auscultation. HEART: Regular rate and rhythm. ABDOMEN: Soft, nondistended, tender to palpation in the left abdomen. No rebound or guarding. SKIN: [place], warm, and dry. No lesions or rashes noted. NEUROLOGIC: The patient is alert and oriented x4. Cranial nerves 2 through 12 grossly intact. Motor strength 5/5 throughout. Sensation is intact to light touch. No significant lower extremity edema. LABORATORY DATA AND X-RAYS: EKG; normal sinus rhythm at 86 beats per minute. No acute ST elevation or depression. Right bundle-branch block. Sodium 139, potassium 3.9, chloride 101, CO2 of 32, BUN 12, creatinine 1.2, blood sugar 197. Liver enzymes normal. Magnesium 1.8. CPK 177. CK-MB 2.0. Troponin I less than 0.040. PATIENT'S NAME: LUPE SCANLON [facility] AGE: 71 Y [address] ROOM: [address] [address] [facility] AD[facility] DATE: 07/16/2017 ER/Outpatient Report DISCHARGE DATE: FAMILY PHYSICIAN: , PAM ATTENDING PHYSICIAN: SAMY ALONZO Sedimentation rate 33. Procalcitonin less than 0.05. Amylase 35, lipase 122, CRP 0.62, INR 1.02. Lactate 2.2. Blood cultures x2 pending. Urine culture pending. Hemoglobin 14.1, hematocrit 41.5, platelets 183, white count 6.3, with a normal differential. Chest x-ray, one view, no acute process. Abdominal CT without IV contrast from yesterday, negative other than cholelithiasis without ductal dilatation. IMPRESSION AND PLAN: 1. Chest pain. 2. Fever of unknown origin. He is afebrile here with normal white count, Procalcitonin, and lactate. However, reports intermittent fevers at home. He just has this diffuse pain and not feeling well. He is immunocompromised with methotrexate and Plaquenil for rheumatoid arthritis. Plan will be for admission for observation for serial EKG and enzymes and further evaluation and await blood culture results. 3. Nausea and vomiting. 4. Abdominal pain of uncertain etiology. 5. Known coronary artery disease. 6. Diabetes mellitus. 7. Hypertension. 8. Obstructive sleep apnea. 9. Gastroesophageal reflux disease. The patient will be admitted to observation per Dr. Alonzo. ANGEL AVITIA MD CAR/modl /[id number] d: 07/16/1710 t: 07/20/17 0649, OUTPATIENT REPORT
[2017-07-15 21:04] LABS: BASOPHIL % 0.5 %; EOSINOPHIL # 0.1 K/uL (0.0-0.5); EOSINOPHIL % 1.9 %; HEMATOCRIT 41.5 % (37.0-53.0); HEMOGLOBIN 14.1 g/dL (11.0-16.0); IMMATURE GRANULOCYTE % 0.5 %; LYMPHOCYTE # 1.4 K/uL (0.8-4.0); LYMPHOCYTE % 21.8 %; MCH 29.9 pg (27.0-34.0); MCV 88.1 fl (83.0-98.0); MONOCYTE # 0.6 K/uL (0.0-1.0); MONOCYTE % 8.7 %; MPV 9.7 fl (9.4-12.4); NEUTROPHIL # (ANC) 4.2 K/uL (1.4-9.0); NEUTROPHIL % 66.6 %; NRBC % 0 /100WBC (0-0.00); PLATELET COUNT 183 K/uL (150-450); RBC 4.71 M/uL (3.50-5.50); RDW-CV 15.3 % (11.9-14.6); WBC 6.3 K/uL (4.0-11.0)
[2017-07-15 21:15] LABS: INR - (THERAPEUTIC) 1.02 (0.92-1.07); PROTIME 10.7 SECONDS (9.8-11.4); PTT 28 SECONDS (25-32)
[2017-07-15 21:45] LABS: ALBUMIN 3.6 gm/dL (3.5-5.0); ALK PHOS 132 IU/L (33-138); ALT 45 IU/L (12-78); ANION GAP 9.9 (10.0-19.0); AST 35 IU/L (10-40); BLOOD UREA NITROGEN 12 mg/dL (6-24); CALCIUM 8.9 mg/dL (8.5-10.5); CHLORIDE 101 mMol/L (96-110); CO2 32 mMol/L (22-32); CPK 177 IU/L (35-332); CREATININE 1.2 mg/dL (0.6-1.3); MAGNESIUM 1.8 mg/dL (1.8-2.6); POTASSIUM 3.9 mMol/L (3.7-5.1); SODIUM 139 mMol/L (135-145); TOTAL BILIRUBIN 0.7 mg/dL (0.0-1.5); TOTAL PROTEIN 7.8 g/dL (6.0-8.4)
--- NOTE | 2017-07-16 01:49 | NUR ---
Patient admitted from ER. Chief complaint chest pain. Patient has been having chest pain off and on for about 1 week. He was in our ER on wednesday cardiac workup was (-) and he was told to go to the [facility]. He was unable to get in this week. Last night he was had chest pain and was nauseated. Took a nirto it didn't resolve the pain so came into the ER again. In ER EKG NSR, cardiac enzymes (-), has several emesis, and NS started and zofran given. On arrival to floor patient is A/Ox3. VSS on RA. One assist. Lungs clear. Bowel sounds hypoactive still nauseated. IV to RT hand NS at 75ml/hr. Skin has several scabs scattered throughout. NSR on monitor. Still complains of chest pain. Dr. Schumacher notified of arrival.
[2017-07-16] MEDS ORDERED: VICTOZA 3-0.6 MG/0.1 SUB-Q (01:53)
[2017-07-16] MEDS ORDERED: CPAP INH (01:56)
[2017-07-16 04:48] LABS: CPK 140 IU/L (35-332)
[2017-07-16 10:54] LABS: CPK 113 IU/L (35-332)
[2017-07-16 10:56] LABS: ALBUMIN 3.1 gm/dL (3.5-5.0); ANION GAP 10.1 (10.0-19.0); CALCIUM 8.4 mg/dL (8.5-10.5); CREATININE 1.2 mg/dL (0.6-1.3); PHOSPHORUS 3.2 mg/dL (2.5-4.9); POTASSIUM 4.1 mMol/L (3.7-5.1)
--- NOTE | 2017-07-16 12:38 | NUR ---
Diabetes consult: Patient with an A1C of 9.5% during his last hospital stay, 04/24/17. Stopped to visit with patient to assess educational needs, however patient is out of the room. Will continue to follow.
--- NOTE | 2017-07-16 16:42 | NUR ---
Introduced self and role of care management to pt's . He is down for a stress test. They live in [place] and she cares for him for the most part but he is able to get around and be active. She helps him put his socks on, shoes and does the meds and cooking and cleaining. He uses a walker or cane and does have w/c if needed. [facility] and also ramp to get into the home. She states he just lately has had this chest pain and not wanting to do much. The plan will be home on discharge and denies any other needs. WIll continue to follow.
--- NOTE | 2017-07-16 19:29 | NUR ---
Significant Event: A/Ox3. VSS. R) hand infusing NS at 75ml/hr and nitro at 10mcg/hr. Room air. Patients pain is controled with nitro but still present. Stress test done today. planing heart cath for tomorrow. Up with SBA-1A. Accuchecks AC/HS.
--- NOTE | 2017-07-17 01:27 | NUR ---
Significant Event:A/Ox3. VSS on RA, RT placed on 2L/NC. up to fill out cath orders. Cath planned for 1000, right groin prepped. Permits signed. Nitro at 10mcg/min with NS infusing at 75ml/h. Patient states that pain is more of a discomfort at a 2/10. Follow up:NPO at midnight for heart cath. Possible home if negative.
--- NOTE | 2017-07-17 05:26 | NUR ---
A&Ox3. States chest pain is just discomfort now. 12/25 pain. Nitro gtt at 10. No h/a. NS infusing at 75ml/hr in R) hand. Heart cath in AM at 10. CHG wipes done and bedding changed. Up with SBA. VSS on r/a. No nausea noted. Cath today, if negative d/c.
--- NOTE | 2017-07-17 09:39 | NUR ---
(-)MST; REPORTED WT LOSS NOT SIG. AMOUNT. BMI: 36.5. PO INTAKE SINCE ADMIT 50%. WILL ASSIST NEEDED.
--- NOTE | 2017-07-17 17:36 | NUR ---
Significant Event: A/O x3, cooperative with cares. VSS, SBPs 90-150s, HRs 40-60s, on room air. No c/o pain. Nitro gtt shut off at approximately 0840. To slab stripper per bed. Heart cath today, negative, no interventions. Site at R) groin soft, non-tender. Up with SBA Follow up: d/c home
== END 2017-07-17 19:15 | disposition disaster alternative care site (69) | DRG 251 ==
LOC: GMED 20:25 → GPCU 07-16 00:29
PROVIDERS: Family Medicine; Internal Medicine Cardiovascular Disease; ADMIT Internal Medicine
PROC: 02703ZZ Dilation of Coronary Artery, One Artery, Percutaneous Approach (ICD-10-PCS; principal; 2017-07-16)
DX: I25.110 Atherosclerotic heart disease of native coronary artery with unstable angina pectoris (principal); E11.42 Type 2 diabetes mellitus with diabetic polyneuropathy; E11.51 Type 2 diabetes mellitus with diabetic peripheral angiopathy without gangrene; H54.41 Blindness, right eye, normal vision left eye; E11.65 Type 2 diabetes mellitus with hyperglycemia; Z79.4 Long term (current) use of insulin; I10 Essential (primary) hypertension; G47.33 Obstructive sleep apnea (adult) (pediatric); E66.01 Morbid (severe) obesity due to excess calories; Z68.36 Body mass index [BMI] 36.0-36.9, adult; Z87.891 Personal history of nicotine dependence; I69.898 Other sequelae of other cerebrovascular disease; Z95.5 Presence of coronary angioplasty implant and graft
CPT/HCPCS: A9500; C1760; C1769; J1644; J1650; J2250; J2405; J2785; J3010; J3475; J7030